=== PATIENT | male | born 1965 | race Caucasian/White ===

== ENCOUNTER 2016-04-02 02:35 | Emergency (ER) | payer OTHER ==
[~2016-04-02] VITALS: Ht 185.4 cm; Wt 97.5 kg
[~2016-04-02 02:35] MED LIST: ALLOPURINOL100 MG; ATIVAN0.5 MG PO; CELEXA20 MG PO; CITALOPRAM HYDR20 MG; CITALOPRAM HYDR40 MG PO; CRESTOR 5MG5 MG PO; DEPAKOTE500 M1 PO; DISULFIRAM250 M1 PO; DIVALPROEX SOD250 M2 PO; LAMICTAL 100MG100 MG PO; LAMICTAL 25MG25 MG PO; LORAZEPAM1 MG; METHYLPHENIDATE10 M4; METOPROLOL SUCC50 M2 PO; RITALIN LA20 MG PO; RITALIN5 M1 PO; SERTRALINE HCL100 MG PO; TOPROL XL 100100 MG PO; ZYLOPRIM 100MG100 MG PO
--- NOTE | 2016-04-02 02:41 | ED AMS/SEIZURE/WEAK/DIZZY ---
History of Present Illness General Chief Complaint: ETOH/Drug Related Complaint Stated Complaint: "PER EMS ETOH" Source: patient, EMS Exam Limitations: no limitations Vital Signs & Intake/Output Vital Signs & Intake/Output Vital Signs Date Time Temp Pulse Resp B/P Pulse O2 O2 Flow FiO2 Ox Delivery Rate 04/02 0304 96.7 73 18 116/64 96 Room Air Allergies Coded Allergies: No Known Allergies (12/26/15) Reconcile Medications Citalopram Hydrobromide (Citalopram HBr) 40 MG TABLET 1 TAB PO DAILY MENTAL HEALTH (Reported) Disulfiram 250 MG TABLET 1 TAB PO DAILY ALCOHOL (Reported) Divalproex Sodium (Depakote) 500 MG TABLET.DR 1 TAB PO BID MENTAL HEALTH ( Reported) Divalproex Sodium 250 MG TABLET.DR 1 TAB PO BID MENTAL HEALTH (Reported) Lamotrigine (Lamictal 25MG) 25 MG TABLET 5 TAB PO DAILY MENTAL HEALTH ( Reported) Methylphenidate Hydrochloride (Ritalin LA) 20 MG CER 20 MG PO QAM ADHD ( Reported) Metoprolol Succinate 50 MG TAB.ER.24H 1 TAB PO DAILY HEART (Reported) Rosuvastatin Calcium (Crestor) 5 MG TABLET 5 MG PO DAILY CHOLESTEROL ( Reported) Sertraline HCl 100 MG TABLET 1 TAB PO DAILY MENTAL HEALTH (Reported) Triage Nurses Notes Reviewed? yes Onset: Gradual Duration: hour(s): Timing: recent history Injury Environment: home Severity: mild, moderate Modifying Factors: Improves With: rest. Associated Symptoms: "I feel fine and want to go home." HPI: 51-year-old gentleman history of alcohol abuse presents with mental status change. He states that he missed a dose of Antabuse, "and that gave me the idea that I could drink tonight." His roommate called for his aberrant behavior consistent with prior episodes of intoxication. He states that he has been drinking tonight and that he feels otherwise well. He denies suicidality homicidality or hallucinations. He does not wish detox. He states, "I'll just sleep it off and leave in the morning." Past History Travel History Traveled to [place] past 21 day No Medical History Any Pertinent Medical History? see below for history Neurological: NONE EENT: NONE Cardiovascular: hypertension, hyperlipidemia Respiratory: NONE Gastrointestinal: NONE Hepatic: NONE Renal: NONE Musculoskeletal: chronic back pain Psychiatric: bipolar disease Endocrine: NONE Blood Disorders: NONE Surgical History Surgical History: none Psychosocial History Who do you live with Family What is your primary language Amharic Family History Hx Contributory? No Review of Systems Review of Systems Constitutional: Reports: no symptoms. EENTM: Reports: no symptoms. Respiratory: Reports: no symptoms. Cardiovascular: Reports: no symptoms. GI: Reports: no symptoms. Genitourinary: Reports: no symptoms. Musculoskeletal: Reports: no symptoms. Skin: Reports: no symptoms. Neurological/Psychological: Reports: no symptoms. Hematologic/Endocrine: Reports: no symptoms. Immunologic/Allergic: Reports: no symptoms. All Other Systems: Reviewed and Negative Physical Exam Physical Exam General Appearance: well developed/nourished Head: atraumatic Eyes: Bilateral: normal appearance. Ears, Nose, Throat: normal pharynx, normal ENT inspection Neck: normal inspection, supple, full range of motion Respiratory: normal breath sounds, chest non-tender, no respiratory distress Cardiovascular: regular rate/rhythm Gastrointestinal: normal bowel sounds, soft, non-tender Back: normal inspection Extremities: normal range of motion Neurologic/Psych: no motor/sensory deficits, awake, alert, oriented x 3 Skin: intact, normal color, warm/dry Core Measures ACS in differential dx? No CVA/TIA Diagnosis: No Severe Sepsis Present: No Septic Shock Present: No Progress Differential Diagnosis: alcohol intoxication versus other Plan of Care: He declines detox. He would like to rest for now and leave in the morning. Initial ED EKG: none Departure Departure Disposition: HOME OR SELF CARE Condition: Stable Clinical Impression Primary Impression: Alcohol intoxication Referrals: MEERA ROBLES MD (PCP/Family) Departure Forms: Customer Survey General Discharge Information Comments 04/02/16, 2:45am... pt breathylized 0.022 and .030.... pt to rest this am and will be safe for discharge in the morning. 04/02/16, 5:26am... pt resting comfortably. pt wishes to leave, denies SI/HI/ hallucinations. He ambulates well. Lucid in ED, able to make his own decisions.
[2016-04-02 05:29] VITALS: BP 114/65
== END 2016-04-02 05:32 ==
LOC: ERH 02:35
DX: F10.129 Alcohol abuse with intoxication, unspecified (principal)

== ENCOUNTER 2017-02-16 12:09 | Inpatient (IN) | payer OTHER ==
[~2017-02-16] VITALS: Ht 182.9 cm; Wt 86.2 kg
[~2017-02-16 12:09] MED LIST changes: +ABILIFY10 M1 PO; +ABILIFY15 M1 PO; +EFFEXOR XR75 M1 PO; +ESCITALOPRAM OX10 MG PO; +GABAPENTIN300 M2 PO; +LITHIUM CARBON300 M4 PO; +NICORELIEF2 MG PO; +NICOTINE PATCH1 EAC2 TOP; +TOPROL XL25 M1 PO; +WELLBUTRIN XL150 M2 PO
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
[2017-02-16 13:08] LABS: ABSOLUTE BASOPHIL COUNT 0 /CUMM (0.0-0.2); ABSOLUTE EOSINOPHIL COUNT 0.2 /CUMM (0.0-0.7); ABSOLUTE GRANULOCYTE CT 5.8 /CUMM (1.4-6.5); ABSOLUTE LYMPH COUNT 1.5 /CUMM (1.2-3.4); ABSOLUTE MONOCYTE COUNT 0.6 /CUMM (0.10-0.60); BASOPHIL % 0.3 % (0.0-2.0); EOSINOPHIL % 2.8 % (0-5); GRANULOCYTE % 70.5 % (42.2-75.2); HEMATOCRIT 45.9 % (42-52); MEAN CORPUSCULAR HGB 28.3 PG (27.0-31.0); MEAN CORPUSCULAR HGB CONC 33.8 G/DL (33.0-37.0); MEAN CORPUSCULAR VOLUME 83.6 FL (80.0-94.0); MEAN PLATELET VOLUME 8.5 FL (7.4-10.4); PLATELET COUNT 205 /CUMM (130-400); RED BLOOD CELL CT 5.49 /CUMM (4.70-6.10); WHITE BLOOD CELL COUNT 8.2 /CUMM (4.8-10.8)
[2017-02-16 14:18] LABS: LITHIUM 0.4 mmol/L (0.6-1.2)
[2017-02-16 18:58] VITALS: BP 149/89
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
--- NOTE | 2017-02-16 23:58 | PN- Gen Med ---
Assessment/Plan Assessment: 52 YO M with medical Hx of bipolar disorder, alcoholism and HTN came to the ER for suicidal ideation. According to him, he had his car beside the train tracks and was thinking of killing himself. He states that his tells him he is a failure and constantly berates him. He has history of suicidal ideation in the past before and was admitted in inpatient psych on Jan 21 - Jan 25 for overdose and suicidal ideation. He denies any illicit drug use but admits to heavy alcohol abuse. 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 He does not offer any complaints and complete ROS unremarkable, compliant with his medications. Problem List: 1. Suicide ideation 2. Bipolar affective, depress, unspec Plan: #1 Bipolar disorder with suicidal ideation : agree with psychiatrist plan #2 alcoholism : agree with psychiatry plan # HTN : continue Metoprolol DVT/Prophylaxis: early ambulation low risk Subjective Follow-up For: SI, bipolar disorder, HTN Complaints: no complaints Subjective: No Complaints, See Assessment. Review of Systems Constitutional: Reports: no symptoms. EENTM: Reports: no symptoms. Cardiovascular: Reports: no symptoms. Respiratory: Reports: no symptoms. Gastrointestinal: Reports: no symptoms. Genitourinary: Reports: no symptoms. Musculoskeletal: Reports: no symptoms. Skin: Reports: no symptoms. Neurological/Psychological: Reports: no symptoms. Hematologic/Endocrine: Reports: no symptoms. Objective Last 24 Hrs of Vital Signs/I&O Vital Signs Date Time Temp Pulse Resp B/P B/P Pulse O2 O2 Flow FiO2 Mean Ox Delivery Rate 02/16 1858 97.3 88 149/89 02/16 185 97.3 88 149/89 02/16 1839 97.6 94 18 140/81 97 Room Air 02/16 1838 90 164/98 02/16 1425 97.9 90 18 164/98 97 Room Air 02/16 1216 96.5 96 16 146/97 98 Room Air Intake & Output 02/16 0000 02/16 0800 02/16 1600 Intake Total Output Total Balance Patient 86.183 kg Weight Weight Reported by Patient Measurement Method Physical Exam General Appearance: Alert, Oriented X3, Cooperative, No Acute Distress Skin: No Rashes HEENT: Atraumatic, PERRLA, EOMI Neck: Supple, No JVD, No thryomegaly, +2 Carotid Pulse wo Bruit Lymphatic: Cervical nl Cardiovascular: Regular Rate, Normal S1, Normal S2, No Murmurs Lungs: Clear to Auscultation, Normal Air Movement Abdomen: Normal Bowel Sounds, Soft, No Tenderness Neurological: Normal Gait, Normal Speech, Strength at 5/5 X4 Ext, Normal Tone, Sensation Intact, Cranial Nerves 3-12 NL, Reflexes 2+ Extremities: No Clubbing, No Cyanosis, No Edema Vascular: Pulses Symmetrical Current Medications: Current Medications Sig/Oni Start time Last Medication Dose Route Stop Time Status Admin Acetaminophen 650 MG Q6-PRN PRN 02/16 1800 AC PO Acetaminophen 0 .STK-MED ONE 02/16 1658 DC PO Al Hydroxide/Mg 30 ML Q4-6 PRN PRN 02/16 1800 AC Hydroxide PO Aripiprazole 10 MG 02/16 2000 AC 02/16 PO 2144 Aripiprazole 10 MG DAILY 02/16 1504 DC PO Benztropine Mesylate 1 MG Q6P PRN 02/16 1800 AC PO Benztropine Mesylate 1 MG Q6P PRN 02/16 1800 AC IM Bupropion HCl 150 MG 0802/17 0800 AC PO Bupropion HCl 150 MG DAILY 02/16 1504 DC 02/16 PO 1657 Folic Acid 1 MG DAILY 02/17 1000 AC PO 02/19 1001 Gabapentin 600 MG AT BEDTIME 02/16 2200 AC 02/16 PO 2144 Haloperidol 5 MG Q6P PRN 02/16 1800 AC PO Haloperidol 5 MG Q6P PRN 02/16 1800 AC IM Hydroxyzine HCl 50 MG Q4-PRN PRN 02/16 1800 AC PO [place] Carbonate 300 MG BID 02/16 2200 AC 02/16 PO 2144 [place] Carbonate 300 MG 00,02/16 2000 CAN PO Lorazepam 2 MG Q2P PRN 02/16 1800 AC PO Lorazepam 1 MG Q2P PRN 02/16 1800 AC PO Lorazepam 2 MG Q6P PRN 02/16 1800 AC PO Lorazepam 2 MG Q6P PRN 02/16 1800 AC IM Metoprolol Succinate 12.5 MG DAILY 02/17 1000 AC PO Metoprolol Succinate 12.5 MG ONCE ONE 02/16 1830 DC 02/16 PO 02/16 183 1838 Multivitamins 1 TAB DAILY 02/17 1000 AC PO Nicotine 2 MG Q2 HRS NEEDED PRN 02/16 1800 AC PO Thiamine HCl 100 MG DAILY 02/17 1000 AC PO 02/19 1001 Trazodone HCl 50 MG AT BEDTIME NEED.. 02/16 1800 AC 02/16 PO 2145 Venlafaxine HCl 75 MG DAILY 02/17 1000 AC PO Venlafaxine HCl 75 MG DAILY 02/16 1504 DC 02/16 PO 1657 Last 24 Hrs of Labs/Mics: Laboratory Tests 02/16/17 1306: Urine Opiates Screen < 100.00, Methadone Screen < 40, Barbiturate Screen < 60, Ur Phencyclidine Scrn < 6.00, Amphetamines Screen < 100, U Benzodiazepines Scrn < 85, Urine Cocaine Screen < 50, Urine Cannabis Screen < 5.00 02/16/17 1258: [place] Cancelled 02/16/17 1258: Anion Gap 14, Estimated GFR > 60, BUN/Creatinine Ratio 14.2, Glucose 86, Calcium 9.9, Total Bilirubin 0.5, AST 24, ALT 39, Alkaline Phosphatase 60, Total Protein 7.8, Albumin 4.6, Globulin 3.2, Albumin/Globulin Ratio 1.4, CBC w Diff NO MAN DIFF REQ, RBC 5.49, MCV 83.6, MCH 28.3, RDW 13.0, MPV 8.5, Gran % 70.5, Lymphocytes % 18.7 L, Monocytes % 7.7, Eosinophils % 2.8, Basophils % 0.3, Absolute Granulocytes 5.8, Absolute Lymphocytes 1.5, Absolute Monocytes 0.6, Absolute Eosinophils 0.2, Absolute Basophils 0, PUBS MCHC 33.8, [place] 0.4 L, Serum Alcohol 59.0
[2017-02-17] VITALS (9 sets, daily range): BP systolic 131–148; BP diastolic 78–100
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
--- NOTE | 2017-02-17 14:14 | CPS PROVIDER INIT ASMT PSYCH ---
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 Feels she berates and belittles him, makes him feel worthless. Reports that yesterday morning he was assessing how he felt miserable and hopeless in his current situation, drove his car to the train tracks, parked next to the tracks, and waited for a train to come, contemplating ending his life by stepping in front of the train. He ultimately decided against killing himself, citing his children, and drove to the hospital for treatment. He reports having 4 beers prior to this episode. Problem(s) Justifying Need for Admission: Acute SI with plan and furtherance of plan Treatment resistant depression Other HPI: On d/c was scheduled to f/u with IOP however per my reading of the notes he never followed up Meds on sd from [facility] Jan 2017: Gabapentin 600 mg QHS Toprol XL 12.5 mg QAM Wellburtin XL 150 mg QAM Effexor XR 75 mg QAM Abilify 10 mg QAM [place] 300 mg BID Past Psychiatric History Past Diagnosis(es)- if any: Bipolar disorder, unspecified Alcohol use disorder Of note, on query regarding true history of manic symptoms, I was unable to elicit any concrete evidence for discrete manic or hypomanic periods Past Precipitating Factors- if any: Treatment non-adherence Substance use - Include inpatient and outpatient treatment Treatment History: Multiple inpatient treatments, including [facility] most recently in 01/2017, as well as at [facility] and another inpatient facility in [place] History of Suicide Attempts or Gestures Denies history of suicide attempts Substance Abuse History: Intermittent alcohol use, currently reports drinking "very occasionally ", further described as less than weekly. He did note that he had 4 beers prior to his driving to the train tracks yesterday morning. Allergies: Coded Allergies: No Known Allergies (10/31/16) Home Med List: Gabapentin 600 mg QHS Toprol XL 12.5 mg QAM Wellburtin XL 150 mg QAM Effexor XR 75 mg QAM Abilify 10 mg QAM [place] 300 mg BID - Include any medical condition(s) that may - impact the patient's recovery/remission Past History Medical History Neurological: NONE EENT: NONE Cardiovascular: hypertension, hyperlipidemia Respiratory: NONE Gastrointestinal: NONE Hepatic: NONE Renal: NONE Musculoskeletal: chronic back pain Psychiatric: bipolar disease, ETOH ABUSE Endocrine: NONE Blood Disorders: NONE Cancer(s): NONE PAIRER SUBSTANDARD/Reproductive: n/a History of MRSA: No History of VRE: No History of CDIFF: No Isolation History: Standard Surgical History Surgical History: non-contributory Psychiatric Family/Social Hx Family History Psychiatric Illness: Mother with "some kind of mental illness. I was never able to figure out what exactly it was, and no one ever told me what it was. " Substance Use: Denies Suicides: Denies Social History Living Situation: Lives with his long-term female partner (they've been together for over 16 years ) Significant Relationships (family/friends): Long-term female partner with whom he has been with for over 16 years Education: High school Vocation/Occupation: Works part-time at [employer], which he says is a job that he enjoys because of interaction with other people Legal: Denies current legal concerns. No pending criminal cases on [place] Behaviors Screening Tobacco Screening Tobacco Use from ED Docu: Never used - If tobacco counseling indicated - the following topics are required. - #1 Recognizing dangerous situations. - #2 Coping Skills. - #3 Basic information about quitting. Status of Tobacco Cessation Counseling: Not Applicable Cessation Med Status Not Applicable Alcohol Screening - ETOH screen POS if BAL >=80 or Audit-C>= M4/F3 Audit-C Score from Diag Assess: 4 Blood Alcohol Level: Laboratory Tests 02/16 1258 Toxicology Serum Alcohol (<10 MG/DL) 59.0 Alcohol Use Screening Results: Pos per Audit C &/or BAL - If ETOH counseling indicated - the following topics are required. - #1 Express concern about the patient's - drinking at unhealthy levels, include informing - of national norms for moderate drinking: - men <= 14 drinks/week, max 4 drinks/occasion - women <= 7 drinks/week, max 3 drinks/occasion - #2 Providing feedback, including linking alcohol to - negative physical effects (liver injury, hypertension) - negative emotional effects (relationship problems and - depression) - negative occupational consequences (reduced work - performance) - #3 Advising the patient to abstain from alcohol or - to drink below national norms for moderate drinking - (as listed above). Status of ETOH Use Counseling: #1, #2 AND #3 Completed. Metabolic Screening - Screen if on a Neuroleptic Medication - Metabolic screening should include: - Blood Pressure, BMI, Glucose or Hgb A1c, & a - Lipid profile from within the past 365 days. Metabolic Screening BMI: 25.700 Blood Pressure: 136/93 Laboratory Results From [facility] (If applicable): Appropriate metabolic laboratory tests ordered Exam and Plan Mental Status Examination Ambulation Status: Stable Appearance: Disheveled and malodorous Attitude towards examiner: Pleasant and cooperative Psychomotor activity: Positive psychomotor retardation Behavior: Appropriate Quality of speech: Within normal limits Affect: Depressed Mood: "Depressed " Suicidal Ideation: Current suicidal ideation without plan or intent Homicidal Ideation: Denies Hallucinations: Denies Paranoid/Delusional Material: None evidenced Difficulties with thought organization: None evidenced Insight: Fair Judgment: Limited Orientation: To person, place, time, situation Cognition: Intact Memory Function: Appropriate immediate and delayed recall Estimate of intellectual functioning: Average Assets/Strengths Patient Identified Assets/Strengths: Has children for whom he cares, has employment, continues to enjoy interacting with others as demonstrated by his enjoyment with his job Impression/Plan Impression and Plan: 52-year-old domiciled, employed, long-term partnered man with a chart history of bipolar disorder and alcohol use disorder, recently discharged from inpatient psychiatry at [facility], presents for ongoing depression with suicidal ideation and furtherance of a plan to take his life by stepping in front of a train. - Include all active medical diagnosis that require tx DSM 5 Diagnosis(es): Depressive disorder, unspecified Alcohol use disorder, moderate - Initial Tx Plan for Active Psych & Medical Conditions Treatment Plan: -Admit Inpatient Psychiatry, voluntary basis -15 minute checks -Follow-up on admission laboratory results -Alcohol use counseling provided -Will continue medications from Inpatient Psychiatry discharge earlier this month. However, up titrate lithium to 300 mg in the morning and 600 mg at night (admission lithium level was 0.4). Also will up titrate Effexor XR from 75 mg daily to 150 mg daily. The patient is in agreement with these medication changes and has been counseled regarding potential side effects to watch out for. Suggest reobtaining lithium level Saturday. -Obtain further collateral from patient's long-term partner -Identify patient's roadblocks to seeking outpatient treatment after discharge. - Factors that would help patient function - in a less restrictive setting. Factors: Lack of SI Improvement in mood
[2017-02-18] VITALS (8 sets, daily range): BP systolic 132–142; BP diastolic 77–96
--- NOTE | 2017-02-18 13:08 | CP SOUTH PROGRESS NOTE PSYCH ---
Psych (Inpt) Progress Note Progress Note Include the following elements, when applicable: Involvement in the active treatment of the patient with behavioral observations of the patient and the patient's response to the treatment. Review of the ongoing treatment process in the context of the treatment plan. Indication of how multi-disciplinary staff members are carrying out the treatment plan. Plans for future interventions and recommendations for revision of the treatment plan. Liaison with other physicians/providers. Progress Note: Dr. Ackerman's notes reviewed. Medication list reviewed. Case discussed with nurse. Nurse reports that the patient is here with suicidal ideation to jump in front of a train. +Alcohol use. Has suicidal ideation but gives a safety promise. Patient seen at 11:14 AM. He was resting in bed but got up to meet with me. He is dressed in blue paper scrubs. Patient reports that he is here because he had gotten extremely depressed over the past couple of days. States it came to a head and he had wanted to check out. Reports he has been verbally abused by his , who allegedly calls him worthless, a lousy father and a lousy human being. Reports he was medication-compliant. Reports he drank a little on the day of presentation. Affect is calm and blunted to depressed. Reports mood is a little down. Rates sad mood 7/10 and anxiety 0/10. Feels hopeless, worthless and guilty. Denies feeling helpless. Reports ongoing suicidal ideation. He gives a safety promise for here. Denies homicidal ideation. Denies auditory and visual hallucinations and paranoid ideation. Reports sleep is okay. Appetite is fine. Energy is not that great. Tolerating medications well, without complaint. IMPRESSION: Slow progress. Continue present treatment plan. Continues to require inpatient level of care. Patient is on lithium, Effexor and Wellbutrin XL. Lab [place] 0.4 mmol/L L 02/16/17 1258 I ordered a repeat lithium level for AM 02/20/17.
[2017-02-19] VITALS (8 sets, daily range): BP systolic 142–160; BP diastolic 96–100
--- NOTE | 2017-02-19 14:56 | CP SOUTH PROGRESS NOTE PSYCH ---
Psych (Inpt) Progress Note Progress Note I reviewed Dr. Sainz note and Dr. Ackerman's notes from the weekend. Medication list reviewed. Case discussed in multidisciplinary treatment team meeting. Summary: Xi was admitted to [facility] because of suicidal ideation to jump in front of a train. +Alcohol use. Mental Status Examination: Xi was alert and oriented to time, place, and person. He is still depressed but reported feeling better. He reported feeling off kilter/dizzy. Affect is calm and stolid. He reported very little anxiety/manageable. He denied feeling hopeless or worthless, he denied wishing or thinking of suicide Xi did not seem sure he is ready for discharge, he said he has a job and not sure if he is going to be able to do IOP. He denied hallucinations and denied feeling paranoid. I did not observe any delusions. IMPRESSION: Slow progress. Reported feeling off kilter/dizzy, otherwise tolerating meds, no tremor. A repeat lithium level was ordered by Dr. Urban for tomorrow Treatment Plan Update: D/C Nicotine D/C Gabapentin Resume Naltrexone 50 mg daily D/C Hydroxyzine
--- NOTE | 2017-02-19 16:40 | SOCIAL WORKER PROG NOTE PSYCH ---
Social Work Progress Note Progress Note [facility] concurrent review entered: Member Name Member ID Member Subscriber Name Subscriber ID CHICHO SANDERSON [id number] 1965 CHICHO SANDERSON [id number] Pended Authorization # Client Authorization # Type of Request [id number] CONCURRENT Date of Admission/ Start of Services Requested From Submission Date 02/16/2017 02/19/2017 02/19/2017 Level of Service Type of Service Level of Care Type of Care INPATIENT/OC Mental Health Inpatient Inpatient [facility] - Inpatient Hospital
--- NOTE | 2017-02-19 17:36 | SOCIAL WORKER PROG NOTE PSYCH ---
Social Work Progress Note Progress Note 2:30pm This video game script writer met with patient. He discussed events leading to current inpatient admission in which he had a plan to "throw myself in front of a train," (he drove to the train tracks) which he ultimately decided against doing when he thought about his "aunt Nicole" as well as his (4) children. He identified triggers as only working senior partner and feeling that he should be more successful in life (an established career, owning a home, money saved for senior living and being a more effective father (spending more time with his children). Patient reported occassional alcohol use and admitted to using (4 beers) prior to driving to the train tracks. He identified alcohol as a means to "escape" how he had been feeling. Patient appeared ambivalent and somewhat resistant to attending IOP, stating that he felt it would conflict with his work schedule. He was agreeable to scheduling a family meeting with his . Patient denied SI today and stated that he felt safe on this unit. He agreed to immediately inform nursing/staff should he feel unsafe or have other concerns.
[2017-02-20 07:56] VITALS: BP 141/98
[2017-02-20 12:22] VITALS: BP 168/99
--- NOTE | 2017-02-20 13:07 | CP SOUTH PROGRESS NOTE PSYCH ---
Psych (Inpt) Progress Note Progress Note I listened to the input of the multidisciplinary treatment team in the morning meeting. Summary: Xi was admitted to [facility] because of suicidal ideation (was thinking about jumping in front of a train) while intoxicated (alcohol). Mental Status Examination: Xi was alert and oriented to time, place, and person. Although still depressed, he is less depressed each passing day (by his report). He believes that he is not yet ready for discharge. He is no longer off kilter or dizzy today. Affect was calm and slightly more animated than yesterday. He reported that his anxiety is minimal and manageable. He denied feeling hopeless or worthless, and he denied wishing or thinking of suicide. Xi is still on the fence regarding IOP because I am going to be starting a new job He denied hallucinations and denied feeling paranoid. I did not observe any delusions. He was coherent/no thought disorder. Assessment: Showing slow progress, [place] Level from this morning was 0.7 mmol/L, BP still slightly elevated Vitals Blood Pressure 141/98 02/20/17 0756 Treatment Plan Update: Increase Metoprolol XR to 25 mg daily Continue Naltrexone 50 mg daily Re-evaluate tomorrow
--- NOTE | 2017-02-20 14:52 | SOCIAL WORKER PROG NOTE PSYCH ---
Social Work Progress Note Progress Note 11:32am This underwriter solicitation director spoke with patient's , Clarissa, by phone to schedule a family meeting. Due to not driving, Clarissa stated that she could either attend a family meeting by phone tomorrow (01/22/17) or attend a family meeting in person on the day of discharge and accompany the patient home. She stated that she preferred to attend in person on the day of discharge. This underwriter solicitation director will review with the team during the team meeting tomorrow morning and contact the patient's by phone. Clarissa also added that she feels it would be difficult for the patient to attend IOP due to accepting a new, second job. Additionally, she felt that the IOP was not effective due to his current admission to [facility]. Clarissa stated that the patient does not "reach out" when he needs help and feels that he needs to learn skills in order to utilize his supports. Clarissa was agreeable to bringing these thoughts and concerns to the family meeting. 1:05pm This underwriter solicitation director met with patient. He described his mood as "alright" and stated that he was nervous about going home as he feels that his is upset with him for being away for the holiday. Patient maintained that he does not want to attend IOP due to his work schedule and would like to return to his individual therapist, Arely Posey (patient was unsure of the last name). Patient denied SI/HI /AH/VH. Patient was informed of the phone call between this underwriter solicitation director and his . He was agreeable to this plan.
[2017-02-20 15:37] VITALS: BP 141/97
[2017-02-20 19:37] VITALS: BP 144/103
[2017-02-21 07:54] VITALS: BP 160/98
[2017-02-21 11:54] VITALS: BP 137/91
--- NOTE | 2017-02-21 12:02 | CP SOUTH PROGRESS NOTE PSYCH ---
Psych (Inpt) Progress Note Progress Note [place] progress and treatment were discussed in the multidisciplinary treatment team meeting. Summary: Xi was admitted to [facility] because of suicidal ideation (was thinking about jumping in front of a train) while intoxicated (alcohol). Mental Status Examination: Xi was alert and oriented to time, place, and person. He reported that his mood is better and he believes that he is ready for discharge for tomorrow. He tolerated naltrexone well, no longer feeling off kilter or dizzy. He was calm and seemed in better spirits today. He reported that his anxiety is minimal and manageable. He denied feeling hopeless or worthless, and he denied wishing or thinking of suicide. Xi decided that he wont be doing IOP following his discharge because he will be working 2 part-time jobs to support his family He denied hallucinations and denied feeling paranoid. There were no delusions. He was coherent/no thought disorder. Assessment: Mentally improving, BP still slightly elevated @ 160/98 mmHg Treatment Plan Update: Continue Metoprolol XR 25 mg daily Continue Naltrexone 50 mg daily Continue [place] (level 0.7) Re-evaluate tomorrow
--- NOTE | 2017-02-21 13:47 | SOCIAL WORKER PROG NOTE PSYCH ---
Social Work Progress Note Progress Note Member Name Member ID Member Subscriber Name Subscriber ID CHICHO SANDERSON [id number] 1965 SAMANTHAUsha Pena MARIA E [id number] Pended Authorization # Client Authorization # Type of Request [id number] CONCURRENT Date of Admission/ Start of Services Requested From Submission Date 02/16/2017 02/21/2017 02/21/2017
[2017-02-21 15:58] VITALS: BP 140/100
--- NOTE | 2017-02-21 17:05 | SOCIAL WORKER PROG NOTE PSYCH ---
Social Work Progress Note Progress Note This communications writer spoke with patient's , Clarissa, to schedule a phone session with the patient this afternoon at 3pm. In addition, at patient's directive due to not having it himself, Clarissa provided his therapist's contact information: Arely Morales, cell - [phone] and work - [phone]. The following [facility] appoinments have been scheduled: Intake with Tg Hernandez LCSW 02/27/17 at 10:30am Medication appointment with Aranza Crocker, RETAIL LOSS PREVENTION OFFICER: 03/19/17 at 10:30am As informed by Aranza, she is willing/able to meet with the patient monthly for medication management if the patient is seen weekly in some format. If the patient's therapist is unable to see him weekly, then he may attend the relapse prevention group. Should patient struggle with symptoms, then she will recommend that he attends the relapse prevention group or IOP. Patient is also offered to attend as many services he wishes to attend should he wish to attend more than weekly treatment. 3:02pm Dr. Melara and this communications writer met with the patient and his , Clarissa. Clarissa attended the meeting by phone. Clarissa discussed concerns about the patient being unwilling to ask for help. Patient stated that he feels as though he is a burden when he does reach out. Clarissa described his "declines" as "gradual declines." Strategies were explored to assist patient in reaching out for help. He identified one or two people that he would be willing to contact as he initially stated that he does not have any friends. "All of my friends were Clarissa's friends first." Discharge plans (as described above) were discussed and Clarissa and the patient were both in agreement with them. They were informed that this communications writer has not yet spoken with Arely Morales regarding treatment. This communications writer will inform patient once contact has been made with Arely. Patient and his were both in agreement and verbally indicated understanding of Aranza Crocker's recommendations. Dr. Melara reviewed medications and responded to related questions/concerns. Patient is anticipated to discharge tomorrow, 02/22/17, and will return home to his . He stated that his mother in law will provide transportation home from the hospital. 4:29pm This communications writer spoke with HOLGER Castaneda by phone. She stated that she plans to continue to meet with the patient on a weekly basis and has scheduled their next appointment (through the patient's , Clarissa) for 11:30am on . She stated that she has worked both with the patient as well as the patient and his and that he has been consistent with treatment. Arely was informed of the recommendations made by Aranza Crocker and stated that she would be in contact with her as well. Arely also stated that she did not feel that the patient would benefit further from IOP at this time, however, would recommend that he attends AA. Arely thanked this communications writer for the call and provided the address of her office: [address] [place], [place]
[2017-02-21 20:00] VITALS: BP 135/97
[2017-02-22 07:39] VITALS: BP 142/96
[2017-02-22] MEDS ORDERED: LITHIUM CARBON300 M4 PO ×2 (08:33)
[2017-02-22] MEDS ORDERED: EFFEXOR XR75 M1 PO (08:33)
[2017-02-22] MEDS ORDERED: TOPROL XL25 M1 PO (08:33)
[2017-02-22] MEDS ORDERED: TRAZODONE HCL50 M1 PO (08:33)
[2017-02-22] MEDS ORDERED: NALTREXONE HCL50 M1 PO (08:33)
--- NOTE | 2017-02-22 10:46 | CP SOUTH PROGRESS NOTE PSYCH ---
Psych (Inpt) Progress Note Progress Note error, duplicate
--- NOTE | 2017-02-22 10:53 | CP SOUTH PROGRESS NOTE PSYCH ---
Psych (Inpt) Progress Note Progress Note [place] progress and treatment were discussed in the multidisciplinary treatment team meeting. Discharge plan/aftercare was discussed as well Summary: Xi was admitted to [facility] because of suicidal ideation (was thinking about jumping in front of a train) while intoxicated (alcohol). He has shown moderate improvement and is no longer thinking of suicide, he feels ready to go home and treatment team is in agreement with that. Mental Status Examination on 02/22/2017: Xi remains constricted in his affect but reported that his depressed mood is better. He was alert and oriented to time, place, and person. He reported that he is ready for discharge. He was calm and reported that his anxiety is minimal and manageable. He denied feeling hopeless or worthless, and he denied wishing or thinking of suicide. Xi will be working 2 part-time jobs to support his family and doing weekly individual therapy and monthly medication management visits. He denied hallucinations and denied feeling paranoid. There were no delusions. He was coherent/no thought disorder. Assessment: During his stay he showed mild improvement in depression and is no longer thinking of suicide. He feels ready to go home and treatment team is in agreement with that. Treatment Plan Update: Discharge Home (see discharge summary and after care plan)
--- NOTE | 2017-02-22 11:03 | DISCHARGE SUMMARY REPORT-PSYCH ---
Visit Information Visit Dates/Diagnosis' Admission Date: 02/16/17 Discharge Date: 02/22/17 Reason for Admission: suicidal ideation Psy Discharge Primary Diag: Depression Psy Discharge Secondary Diag: Alcohol Dependence Hospital Course Course Complications: No complications Consultations: Admission H & P Allergies: Coded Allergies: No Known Allergies (12/26/15) Hospital Course/TX Response: Admitted this time on 02/16/2017 for "Well, I just feel like life is pointless. " Longstanding history of mood and substance use disorders, ongoing depressive symptoms since dc from (recently hospitalized at 01/21-01/25/17 for SI). Before this current admission he drove his car to the train tracks, parked next to the tracks, and waited for a train to come, contemplating ending his life by stepping in front of the train. He ultimately decided against killing himself, citing his children, and drove to the hospital for treatment. He reports having 4 beers prior to this episode. Patient treated with a combination of Effexor, Grand Ridge and showed minimal to mild improvement but he was free of theoughts of suicide at the time of his discharge. He tolerated medications well Mental Status Examination on 02/22/2017: Xi remains constricted in his affect but reported that his depressed mood is better. He was alert and oriented to time, place, and person. He reported that he is ready for discharge. He was calm and reported that his anxiety is minimal and manageable. He denied feeling hopeless or worthless, and he denied wishing or thinking of suicide. Xi will be working 2 part-time jobs to support his family and doing weekly individual therapy and monthly medication management visits. He denied hallucinations and denied feeling paranoid. There were no delusions. He was coherent/no thought disorder. Assessment: During his stay he showed mild improvement in depression and is no longer thinking of suicide. He feels ready to go home and treatment team is in agreement with that. Treatment Plan Update: Discharge Home Discharge HBIPS - Tobacco Use Treatment Offered Post DC Medications Offered: Not Applicable Post DC Tobacco Treatment Plan: Not Applicable - EtOH/Drug Use D/O Treatment Offered Post DC Medications Offered: Script Given-See Med List Post DC EtOH/SubAbuse TX Plan: Refused Post DC Tx Pgm Metabolic Screening - Screen if on a Neuroleptic Medication - Metabolic screening should include: - Blood Pressure, BMI, Glucose or Hgb A1c, & a - Lipid profile from within the past 365 days. Metabolic Screening () Not Applicable, patient not on a neuroleptic. OR ([X]) Patient on a neuroleptic(s) . Enter below results for Hemoglobin A1C, and lipid panel if obtained during the last 365 days. BMI: 25.700 Blood Pressure: 142/96 Laboratory Results From [facility] (If applicable): Lab Cholesterol 251 MG/DL H 02/19/17 0650 Cholesterol/HDL Ratio 5 % H 02/19/17 0650 HDL Cholesterol 48 mg/dL 02/19/17 0650 Hemoglobin A1c 5.5 % 02/19/17 0650 LDL Cholesterol, Calc 156 mg/dL H 02/19/17 0650 Triglycerides 239 mg/dL H 02/19/17 0650 Grand Ridge 0.7 mmol/L 02/20/17 0619 Discharge Instructions General Discharge Information Multiple Neuroleptics: ([X]) Not Applicable Discharge Diet Other Discharge Activity Normal DC Disposition: D/C Home with Outpatient Individual Therapy at least weekly and Medication management and monitoring by Aranza Crocker APRN Referrals Ordered Referrals Provider Referral 02/27/17 For Groups: [ Outpatient] [facility] [address] [place] [address] Intake appointment: 02/27/17 at 10:30am with Tg Hernandez LCSW Provider Referral 03/19/17 For Groups: [ Outpatient] [facility] [address] [place] [address] Appointment: 03/19/17 at 9:30am with Aranza Crocker APRN Provider Referral 02/26/17 For Providers: [HOLGER Kirkland] HOLGER Castaneda [address] [facility] [address] [place], [place] [phone] Prescriptions Stop taking the following medications: Disulfiram (Disulfiram) 250 MG TABLET ORAL DAILY Qty = 30 Metoprolol Succ XL (Toprol XL) 25 MG TAB ORAL DAILY Qty = 7 Grand Ridge Carbonate (Grand Ridge Carbonate) 300 MG CAPSULE ORAL TWICE DAILY Qty = 30 Continue taking these medications: Gabapentin (Gabapentin) 300 MG CAPSULE 2 Tablet ORAL AT BEDTIME Qty = 30 Comments: Last Taken:01/24/17 Time:2142 pm Bupropion HCl (Wellbutrin XL) 150 MG TAB.ER.24H 1 Tablet ORAL DAILY @8 AM Qty = 14 Comments: Last Taken:01/25/17 Time:0812 am Venlafaxine HCl (Effexor XR) 75 MG CAP.ER.24H 1 Tablet ORAL DAILY Qty = 14 Comments: Last Taken:01/25/17 Time:0812 am Aripiprazole (Abilify) 10 MG TABLET 1 Tablet ORAL 2000 Qty = 14 Comments: Last Taken:01/24/17 Time:194 pm Start taking the following new medications: Metoprolol Succ XL (Toprol XL) 25 MG TAB 25 Milligram ORAL 5 PM Qty = 30 No Refills Naltrexone HCl (Naltrexone HCl) 50 MG TABLET 50 Milligram ORAL DAILY Qty = 14 No Refills Trazodone HCl (Trazodone HCl) 50 MG TABLET 50 Milligram ORAL AT BEDTIME as needed for insomnia Qty = 14 No Refills Venlafaxine HCl (Effexor XR) 75 MG CAP.ER.24H 150 Milligram ORAL DAILY @8 AM Qty = 14 No Refills Grand Ridge Carbonate (Grand Ridge Carbonate) 300 MG CAPSULE 600 Milligram ORAL AT BEDTIME Qty = 14 No Refills Grand Ridge Carbonate (Grand Ridge Carbonate) 300 MG CAPSULE 300 Milligram ORAL DAILY @8 AM Qty = 14 No Refills Copies To: Aranza Marcano APRN
[2017-02-22 12:12] VITALS: BP 113/93
--- NOTE | 2017-02-22 14:02 | SOCIAL WORKER PROG NOTE PSYCH ---
Social Work Progress Note Progress Note This report writer met with patient prior to discharge to review discharge plans. He stated that he felt comfortable with discharging today, however, was concerned that his "doesn't think anything is going to change." Patient expressed intention to follow through with outpatient treatment and identify strategies in order to feel more comfortable utilizing supports. He identified that he has a support system in place, referencing his and a friend. Patient stated that he will make an effort to maintain more frequent contact with his supports. Patient denied SI/HI/AH/VH and identified a safety plan in which he would immediately inform his , Clarissa, if he feels he is in crisis. "If it doesn 't help [talking to Clarissa] I'll call Arely." Patient was agreeable to attending at least weekly appointments upon discharge and was reminded of the conversation from yesterday in which he was informed of the relapse prevention groups. Patient was agreeable to attending the following appointments: - OPS with Tg Hernandez LCSW on 02/27/17 at 10:30am - OPS with Aranza Crocker APRN on 03/19/17 at 9:30am - Individual therapy with HOLGER Castaneda on 02/26/17 at 11:30am 10:04am This report writer left for HOLGER Castaneda ([phone]) requesting a call back to provide her fax number in order to fax the discharge papers (Patient Health Summary). Faxed Referral(s) Referred To: OPS Transition of Care Documents sent: Health Summary, Transfer Summary Faxed to: OPS: Aranza Jones Fax #: [phone] Faxed by: Nadia Lin LCSW Date faxed: 02/22/17 Time Faxed: [phone]
== END 2017-02-22 12:58 | DRG 754 ==
LOC: ERH 12:09 → ERHI 17:46 → CP SOUTH 17:46 → ENTRNSPT 18:38 → EDTRNSPT 18:40 → EDTRNSPTSTS 18:40 → CP SOUTH 18:47 → CMPTRNSPT 18:52 → CP SOUTH 02-19 08:13
PROVIDERS: Emergency Medicine; Psychiatry & Neurology Psychiatry
DX: F32.9 Major depressive disorder, single episode, unspecified (principal); F10.20 Alcohol dependence, uncomplicated
CPT/HCPCS: 36415; 80307; 93005; 93010; G0463; G0480; J0401; J3490

== ENCOUNTER 2017-03-17 16:43 | Inpatient (IN) | payer OTHER ==
[~2017-03-17] VITALS: Ht 182.9 cm; Wt 85.3 kg
[~2017-03-17 16:43] MED LIST changes: +NALTREXONE HCL50 M1 PO; +TRAZODONE HCL50 M1 PO
--- NOTE | 2017-03-17 16:52 | ED PSYCHIATRIC COMPLAINT ---
History of Present Illness General Chief Complaint: Psychiatric Related Complaint Stated Complaint: PSYCH EVAL Source: patient, old records, EMS Exam Limitations: no limitations Vital Signs & Intake/Output Vital Signs & Intake/Output Vital Signs Date Time Temp Pulse Resp B/P B/P Pulse O2 O2 Flow FiO2 Mean Ox Delivery Rate 03/18 0824 98.0 114 20 169/96 95 Room Air 03/17 2309 98.2 98 18 142/91 03/17 2309 98.2 98 18 142/91 94 Room Air 03/17 1903 98.0 95 16 152/90 98 Room Air 03/17 1829 96 20 148/103 03/17 1718 97.6 93 16 139/78 98 Room Air ED Intake and Output 03/18 0000 03/17 1200 Intake Total 0 Output Total Balance 0 Intake, Oral 0 Allergies Coded Allergies: No Known Allergies (12/26/15) Reconcile Medications Aripiprazole (Abilify) 10 MG TABLET 1 TAB PO 2000 DEPRESSION Bupropion HCl (Wellbutrin XL) 150 MG TAB.ER.24H 1 TAB PO 0800 DEPRESSION Gabapentin 300 MG CAPSULE 2 TAB PO AT BEDTIME SLEEP Buchanan Carbonate 300 MG CAPSULE 600 MG PO AT BEDTIME mood Buchanan Carbonate 300 MG CAPSULE 300 MG PO 0800 mood regulation Metoprolol Succ XL (Toprol XL) 25 MG TAB 25 MG PO 1700 blood pressure Naltrexone HCl 50 MG TABLET 50 MG PO DAILY cravings for alcohol Trazodone HCl 50 MG TABLET 50 MG PO AT BEDTIME PRN insomnia Venlafaxine HCl (Effexor XR) 75 MG CAP.ER.24H 150 MG PO 0800 depression (with the 75 mg) Venlafaxine HCl (Effexor XR) 75 MG CAP.ER.24H 1 TAB PO DAILY DEPRESSION Triage Nurses Notes Reviewed? yes HPI: Patient brought in by ambulance for suicidal ideations. No specific plans. Patient states he drank 6 beers today and knows that he is not supposed to check. Patient states he has been compliant with his medications. Patient denies any homicidal ideations. Patient denies any hallucinations. (Dionna GUTIERREZ,Osmin Harris) Past History Medical History Any Pertinent Medical History? see below for history Neurological: NONE EENT: NONE Cardiovascular: hypertension, hyperlipidemia Respiratory: NONE Gastrointestinal: NONE Hepatic: NONE Renal: NONE Musculoskeletal: chronic back pain Psychiatric: bipolar disease, ETOH ABUSE Endocrine: NONE Blood Disorders: NONE Cancer(s): NONE WARD MAID/Reproductive: n/a History of MRSA: No History of VRE: No History of CDIFF: No Surgical History Surgical History: none Psychosocial History Who do you live with Family What is your primary language Bruneian Tobacco Use: Current Daily Use Daily Tobacco Use Amount/Type: => 5 Cigarettes daily ETOH Use: heavy use Illicit Drug Use: denies illicit drug use Family History Hx Contributory? No (Dionna GUTIERREZ,Osmin Harris) Review of Systems Review of Systems Constitutional: Reports: no symptoms. EENTM: Reports: no symptoms. Respiratory: Reports: no symptoms. Cardiovascular: Reports: no symptoms. GI: Reports: no symptoms. Genitourinary: Reports: no symptoms. Musculoskeletal: Reports: no symptoms. Skin: Reports: no symptoms. Neurological/Psychological: Reports: see HPI, depressed. Hematologic/Endocrine: Reports: no symptoms. Immunologic/Allergic: Reports: no symptoms. All Other Systems: Reviewed and Negative (Dionna GUTIERREZ,Osmin Harris) Physical Exam Physical Exam General Appearance: well developed/nourished, mild distress Head: atraumatic Eyes: Bilateral: PERRL, EOMI. Ears, Nose, Throat: normal pharynx, normal ENT inspection, hearing grossly normal Neck: normal inspection, supple Respiratory: normal breath sounds Cardiovascular: regular rate/rhythm Gastrointestinal: soft, non-tender Extremities: normal range of motion Neurological/Psychiatric: no motor/sensory deficits, awake, alert, calm, oriented x 3 Appearance/Memory/Insight: appropriate appearance, appropriate insight Behavoir/Eye Contact/Speech: cooperative, normal speech, good eye contact Thoughts/Hallucinations: normal thought pattern, no apparent hallucination Skin: intact, normal color, warm/dry SAD PERSONS Done? CRISIS CONSULT OBTAINED (Dionna GUTIERREZ,Osmin Harris) Progress Differential Diagnosis: drug intoxication, drug overdose, drug withdrawal, electrolyte abnormality Plan of Care: Orders Procedure Date/time Status Regular Diet 03/18 B Active Continuous Observation Monitor 03/18 1900 Active Continuous Observation Monitor 03/18 1500 Active Continuous Observation Monitor 03/18 1100 Active Admit to inpatient psych 03/18 1041 Active Continuous Observation Monitor 03/18 0700 Active LITHIUM 03/17 1653 Complete Continuous Observation Monitor 03/17 1652 Active URINE DRUGS OF ABUSE 03/17 1652 Complete ETHANOL 03/17 1652 Complete COMPREHENSIVE METABOLIC PANEL 03/17 1652 Complete CBC WITHOUT DIFFERENTIAL 03/17 1651 Complete ED CRISIS PSYCH CONSULT 03/17 1651 Active Current Medications Sig/Oni Start time Last Medication Dose Stop Time Status Admin Lorazepam 1 MG Q2P PRN 03/18 09 UNVr (Ativan) Lorazepam 2 MG Q2 PRN 03/18 09 UNVr (Ativan) Buchanan Carbonate 300 MG 0803/18 0800 UNVr 03/18 (Buchanan Carbonate) 0826 Venlafaxine HCl 150 MG 0803/18 08 UNVr 03/18 (Effexor Xr) 08 Gabapentin 600 MG AT BEDTIME 03/17 220 UNVr 03/17 (Neurontin) 222 Buchanan Carbonate 600 MG AT BEDTIME 03/17 220 UNVr 03/17 (Buchanan Carbonate) 222 Metoprolol Succinate 25 MG 17003/17 170 UNVr 03/17 (Toprol XL) 182 Trazodone HCl 50 MG AT BEDTIME PRN 03/17 1700 AC (Desyrel) Laboratory Tests 03/17/17 1802: Urine Opiates Screen < 100.00, Methadone Screen < 40, Barbiturate Screen < 60, Ur Phencyclidine Scrn < 6.00, Amphetamines Screen < 100, U Benzodiazepines Scrn < 85, Urine Cocaine Screen < 50, Urine Cannabis Screen < 5.00 03/17/17 170: Serum Alcohol 41.0 03/17/17 170: Anion Gap 13, Estimated GFR > 60, BUN/Creatinine Ratio 12.5, Glucose 94, Calcium 9.7, Total Bilirubin 0.3, AST 20, ALT 45, Alkaline Phosphatase 51, Total Protein 7.3, Albumin 4.5, Globulin 2.8, Albumin/Globulin Ratio 1.6, CBC w Diff NO MAN DIFF REQ, RBC 5.38, MCV 83.6, MCH 27.6, RDW 13.4, MPV 8.8, Gran % 63.8, Lymphocytes % 24.9, Monocytes % 7.2, Eosinophils % 3.9, Basophils % 0.2, Absolute Granulocytes 4.0, Absolute Lymphocytes 1.6, Absolute Monocytes 0.5, Absolute Eosinophils 0.2, Absolute Basophils 0, PUBS MCHC 33.0, Buchanan 0.4 L Hand-Off Endorsed To: Lalo GUTIERREZ,Luis Manuel Esparza Endorsed Time: 1899 Pending: consult (Osmin Villareal MD) Hand-Off Endorsed To: Renard Ayala MD Endorsed Time: 0700 Pending: consult (Lalo GUTIERREZ,Luis Manuel Esparza) Departure Departure Disposition: STILL A PATIENT Condition: Stable Clinical Impression Primary Impression: Depression Secondary Impressions: Alcohol intoxication Referrals: Rosa Andersen DO (PCP/Family) Departure Forms: Customer Survey General Discharge Information (Osmin Villareal MD) Psych Admission Note Psychiatric Admission: I have seen and evaluated CHICHO SANDERSON. I have also reviewed all the pertinent lab results and diagnostic results. CHICHO SANDERSON will be admitted to our inpatient Psychiatric unit for treatment and care. (Renard Ayala MD)
[2017-03-17 17:23] LABS: ABSOLUTE BASOPHIL COUNT 0 /CUMM (0.0-0.2); ABSOLUTE EOSINOPHIL COUNT 0.2 /CUMM (0.0-0.7); ABSOLUTE LYMPH COUNT 1.6 /CUMM (1.2-3.4); ABSOLUTE MONOCYTE COUNT 0.5 /CUMM (0.10-0.60); BASOPHIL % 0.2 % (0.0-2.0); EOSINOPHIL % 3.9 % (0-5); GRANULOCYTE % 63.8 % (42.2-75.2); MEAN CORPUSCULAR HGB 27.6 PG (27.0-31.0); MEAN CORPUSCULAR VOLUME 83.6 FL (80.0-94.0); MEAN PLATELET VOLUME 8.8 FL (7.4-10.4); PLATELET COUNT 236 /CUMM (130-400); RBC DISTRIBUTION WIDTH 13.4 % (11.5-14.5); RED BLOOD CELL CT 5.38 /CUMM (4.70-6.10); WHITE BLOOD CELL COUNT 6.3 /CUMM (4.8-10.8)
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
[2017-03-17 23:09] VITALS: BP 142/91
[2017-03-18] VITALS (7 sets, daily range): BP systolic 137–147; BP diastolic 79–98
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
--- NOTE | 2017-03-18 13:53 | CPS PROVIDER INIT ASMT PSYCH ---
Psychiatric Admission Director Marketing's Note Reviewed: Yes Patient Seen and Examined: Yes Identifying Information: Xi is a 52-year-old white male who was brought in to [facility]'s emergency department by ambulance after his called 911. The patient reportedly told the police officers that he was having thoughts of suicide. Chief Complaint: Increasing depression and thoughts of suicide. The patient reported that he has been having thoughts of suicide pretty much since his discharge from [facility] about 3 weeks ago Reaction to Hospitalization: The patient was admitted voluntarily History of Present Illness Onset of Illness: The patient reported that he felt that he left the hospital early and was still having thoughts of suicide (although he denied that at his discharge), the patient reported that his been struggling with thoughts of suicide almost daily for the past 3 weeks Circumstances Leading to Admission: Relapsed on sixpack of beer and called 911 Problem(s) Justifying Need for Admission: Thoughts of suicide Past Psychiatric History Past Diagnosis(es)- if any: Unspecified depressive disorder Alcohol use disorder Past Precipitating Factors- if any: Relapsed on alcohol - Include inpatient and outpatient treatment Treatment History: The patient has had previous inpatient psychiatric admissions as well as being in treatment with [facility]'s outpatient psychiatric services History of Suicide Attempts or Gestures The patient has no previous suicide attempts although he has talked about suicide and mentioned specific plans in the past Substance Abuse History: Alcohol use disorder, the patient denied using other substances. Allergies: Coded Allergies: No Known Allergies (12/26/15) Home Med List: The patient was discharged on aripiprazole 10 mg daily Gabapentin (Gabapentin) 600 mg at bedtime Bupropion HCl (Wellbutrin XL) 150 MG ONCE DAILY Venlafaxine HCl (Effexor XR) 75 MG CAP.ER. Once daily - Include any medical condition(s) that may - impact the patient's recovery/remission Past History Medical History Neurological: NONE EENT: NONE Cardiovascular: hypertension, hyperlipidemia Respiratory: NONE Gastrointestinal: NONE Hepatic: NONE Renal: NONE Musculoskeletal: chronic back pain Psychiatric: bipolar disease, ETOH ABUSE Endocrine: NONE Blood Disorders: NONE Cancer(s): NONE FLOWER GRADER/Reproductive: n/a History of MRSA: No History of VRE: No History of CDIFF: No Isolation History: Standard Influenza Vaccine: 04/08/14 Surgical History Surgical History: non-contributory Psychiatric Family/Social Hx Family History Psychiatric Illness: Reportedly mother has "some kind of mental illness." Substance Use: Denied Suicides: Denied Social History Living Situation: Patient's live with his long-term female partner/common-law do been together for over 16 years Significant Relationships (family/friends): Long-term female partner/common-law Education: High school education Vocation/Occupation: Works part-time at [employer], he reports that he enjoys his job Legal: The patient denied any legal entanglements Healthly Behaviors Screening Tobacco Screening Tobacco Use from ED Docu: Never used Daily Tobacco Use Amount/Type: => 5 Cigarettes daily - If tobacco counseling indicated - the following topics are required. - #1 Recognizing dangerous situations. - #2 Coping Skills. - #3 Basic information about quitting. Status of Tobacco Cessation Counseling: Not Applicable Cessation Med Status Not Applicable Alcohol Screening - ETOH screen POS if BAL >=80 or Audit-C>= M4/F3 Audit-C Score from Diag Assess: 7 Blood Alcohol Level: Laboratory Tests 03/17 1706 Toxicology Serum Alcohol (<10 MG/DL) 41.0 Alcohol Use Screening Results: Pos per Audit C &/or BAL - If ETOH counseling indicated - the following topics are required. - #1 Express concern about the patient's - drinking at unhealthy levels, include informing - of national norms for moderate drinking: - men <= 14 drinks/week, max 4 drinks/occasion - women <= 7 drinks/week, max 3 drinks/occasion - #2 Providing feedback, including linking alcohol to - negative physical effects (liver injury, hypertension) - negative emotional effects (relationship problems and - depression) - negative occupational consequences (reduced work - performance) - #3 Advising the patient to abstain from alcohol or - to drink below national norms for moderate drinking - (as listed above). Status of ETOH Use Counseling: #1, #2 AND #3 Completed. Metabolic Screening - Screen if on a Neuroleptic Medication - Metabolic screening should include: - Blood Pressure, BMI, Glucose or Hgb A1c, & a - Lipid profile from within the past 365 days. Metabolic Screening () Not Applicable, patient not on a neuroleptic. OR () Patient on a neuroleptic(s) . Enter below results for Hemoglobin A1C, and lipid panel if obtained during the last 365 days. BMI: 25.500 Blood Pressure: 145/98 Laboratory Results From [facility] (If applicable): Lab Cholesterol 251 MG/DL H 12/26/17 0650 Cholesterol/HDL Ratio 5 % H 02/19/17 0650 Glucose 94 mg/dL 03/17/17 1706 HDL Cholesterol 48 mg/dL 02/19/17 0650 Hemoglobin A1c 5.5 % 02/19/17 0650 LDL Cholesterol, Calc 156 mg/dL H 02/19/17 0650 Triglycerides 239 mg/dL H 02/19/17 0650 Exam and Plan Mental Status Examination Ambulation Status: Steady gait Appearance: Appropriate Attitude towards examiner: Cooperative Psychomotor activity: Reduced psychomotor activity Behavior: Reduced psychomotor activity Quality of speech: Reduced speech Affect: Constricted Mood: Depressed Suicidal Ideation: He is still having suicidal ideation as of this morning Homicidal Ideation: Denied Hallucinations: Denied Paranoid/Delusional Material: Denied Difficulties with thought organization: No difficulties with thought organization Insight: Poor insight Judgment: Poor judgment Orientation: Oriented to time place and person Cognition: Alert Memory Function: No memory deficits Estimate of intellectual functioning: Average Assets/Strengths Patient Identified Assets/Strengths: Patient is employed and likes his job Impression/Plan Impression and Plan: 52-year-old white male who is known to staff at Inpatient Psychiatry from previous admissions. 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 15 minute checks Nursing assessments every shift Social work to obtain collateral and start discharge planning in Group therapy Milieu therapy Resume outpatient medications The patient will be evaluated daily by a psychiatrist - Factors that would help patient function - in a less restrictive setting. Factors: Abstinence from alcohol
--- NOTE | 2017-03-18 14:59 | PN- Att Addend ---
Attending Addendum Attending Brief Note Patient seen and examined, denies any medical complaints at present. Patient is admitted to Inpatient Psychiatry suicidal ideation. He does have history of hypertension. He takes Toprol-XL for his hypertension. Vital Signs Date Time Temp Pulse Resp B/P B/P Pulse O2 O2 Flow FiO2 Mean Ox Delivery Rate 03/18 1414 83 139/95 03/18 1141 Room Air 03/18 1141 97.7 89 16 145/98 03/18 1141 97.7 89 145/98 03/18 0824 98.0 114 20 169/96 95 Room Air 03/17 2309 98.2 98 18 142/91 03/17 2309 98.2 98 18 142/91 94 Room Air 03/17 1903 98.0 95 16 152/90 98 Room Air 03/17 1829 96 20 148/103 03/17 1718 97.6 93 16 139/78 98 Room Air on exam; aox3, nad. cv; s1,s2 rrr resp; clear abd; soft, nt, bs+ ext; no edema. Laboratory Tests 03/17 03/17 03/17 1802 1706 1706 Chemistry Sodium (137 - 145 mmol/L) 145 Potassium (3.5 - 5.1 mmol/L) 3.9 Chloride (98 - 107 mmol/L) 109 H Carbon Dioxide (22 - 30 mmol/L) 23 Anion Gap (5 - 16) 13 BUN (9 - 20 mg/dL) 15 Creatinine (0.7 - 1.2 mg/dL) 1.2 Estimated GFR (>60 ml/min) > 60 BUN/Creatinine Ratio (7 - 25 %) 12.5 Glucose (65 - 99 mg/dL) 94 Calcium (8.4 - 10.2 mg/dL) 9.7 Total Bilirubin (0.2 - 1.3 mg/dL) 0.3 AST (17 - 59 U/L) 20 ALT (21 - 72 U/L) 45 Alkaline Phosphatase (< 127 U/L) 51 Total Protein (6.3 - 8.2 g/dL) 7.3 Albumin (3.5 - 5.0 g/dL) 4.5 Globulin (1.9 - 4.2 gm/dL) 2.8 Albumin/Globulin Ratio (1.1 - 2.2 %) 1.6 Hematology CBC w Diff NO MAN DIFF REQ WBC (4.8 - 10.8 /CUMM) 6.3 RBC (4.70 - 6.10 /CUMM) 5.38 Hgb (14.0 - 18.0 G/DL) 14.8 Hct (42 - 52 %) 45.0 MCV (80.0 - 94.0 FL) 83.6 MCH (27.0 - 31.0 PG) 27.6 RDW (11.5 - 14.5 %) 13.4 Plt Count (130 - 400 /CUMM) 236 MPV (7.4 - 10.4 FL) 8.8 Gran % (42.2 - 75.2 %) 63.8 Lymphocytes % (20.5 - 51.1 %) 24.9 Monocytes % (1.7 - 9.3 %) 7.2 Eosinophils % (0 - 5 %) 3.9 Basophils % (0.0 - 2.0 %) 0.2 Absolute Granulocytes (1.4 - 6.5 /CUMM) 4.0 Absolute Lymphocytes (1.2 - 3.4 /CUMM) 1.6 Absolute Monocytes (0.10 - 0.60 /CUMM) 0.5 Absolute Eosinophils (0.0 - 0.7 /CUMM) 0.2 Absolute Basophils (0.0 - 0.2 /CUMM) 0 PUBS MCHC (33.0 - 37.0 G/DL) 33.0 Toxicology Urine Opiates Screen (>2000 NG/ML) < 100.00 Methadone Screen (>300 NG/ML) < 40 Barbiturate Screen (>200 NG/ML) < 60 Ur Phencyclidine Scrn (>25 NG/ML) < 6.00 Amphetamines Screen (>1000 NG/ML) < 100 U Benzodiazepines Scrn (>200 NG/ML) < 85 [place] (0.6 - 1.2 mmol/L) 0.4 L Urine Cocaine Screen (>300 NG/ML) < 50 Urine Cannabis Screen (>50 NG/ML) < 5.00 Serum Alcohol (<10 MG/DL) 41.0 A/P; 52-year-old male with past history significant for hypertension, bipolar disorder. His admission for suicidal ideation is admitted to [facility] with suicidal ideation. Agree with resuming patient's Toprol-XL. I reviewed the labs and they look okay. But monitor the blood pressure on his home dose. For the psych management will be per psychiatry.
[2017-03-19] VITALS (8 sets, daily range): BP systolic 130–142; BP diastolic 76–99
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
--- NOTE | 2017-03-19 11:57 | CP SOUTH PROGRESS NOTE PSYCH ---
Psych (Inpt) Progress Note Progress Note Nursing Staff, Group and Activity Therapists, Social Work Staff, and Psychiatrist discussed the patient's treatment and progress Summary: A 52-year-old White male who was brought to [facility]'s ED after his called 911. The patient reportedly told the police officers that he was having thoughts of suicide. The patient reported that he has been having thoughts of suicide pretty much since his discharge from [facility] about 3 weeks ago The patient reported that he felt that he left the hospital early and was still having thoughts of suicide (although he denied that at his discharge), the patient reported that his been struggling with thoughts of suicide almost daily for the past 3 weeks Mental Status Examination The patient reported that he feels bumped out/tired/depressed, he was lying in bed around 11:30 AM, he was up for breakfast, he was calm and cooperative Reduced psychomotor activity, Reduced speech Constricted affect, on and off suicidal ideation , denied violent thoughts or homicidal Ideation, denied Hallucinations, Denied feeling paranoid/Delusional Material, no difficulties with thought organization Poor insight Poor judgment Oriented to time place and person Alert No memory deficits Impression and Plan: 52-year-old white male who is known to staff at Inpatient Psychiatry from previous admissions. 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 Continue 15 minute checks Nursing assessments every shift Social work to obtain collateral and start discharge planning in Group therapy Milieu therapy Continue Abilify 10 mg daily
--- NOTE | 2017-03-19 16:05 | SOCIAL WORKER PROG NOTE PSYCH ---
Social Work Progress Note Progress Note 3:42pm This specification writer met with patient. He reported experiencing depression at a 7-8/. He identified feeling overwhelmed by his house being out of order as his primary trigger for his depression. Patient stated that he had been working with Xin Garciacortney for individual therapy and would like to return to working with her upon discharge. He stated that he is not interested in IOP due to plans to start a new second job. Regarding alcohol use, patient stated that he drank once prior to coming to the ER, however, denied regular use and stated that he does not need substance use treatment, including inpatient treatment for substance use. Patient refuses a family meeting. He reported that he continues to experience SI, "I fantasize about it"; he denied any plan. He stated that he feels safe on this unit and would inform staff immediately if feeling unsafe.
[2017-03-20] VITALS (8 sets, daily range): BP systolic 133–142; BP diastolic 78–88
--- NOTE | 2017-03-20 10:59 | CP SOUTH PROGRESS NOTE PSYCH ---
Psych (Inpt) Progress Note Progress Note Saturday: Nursing Staff, Group and Activity Therapists, Social Work Staff, and Psychiatrist discussed the patient's treatment and progress Mental Status Examination: The patient reported that he feels minor improvement in mood. He said he continues to feel tired and thinks it is one of the medications. He was calm and cooperative, reduced psychomotor activity, reduced speech, constricted affect, not very hopeful but denied thinking of ending his life, denied violent thoughts or homicidal Ideation, denied hallucinations, and denied feeling paranoid. There were no delusions, no difficulties with thought organization, poor insight, oriented to time place and person, alert, no memory deficits Impression and Plan: A 52-year-old White male who was brought to [facility]'s ED after his called 911 (reportedly had 6 beers and had a heated argument with his ). The patient reportedly told the police officers that he was having thoughts of suicide. The patient claimed that he has been having thoughts of suicide since his discharge from [facility] about 3 weeks ago/claimed that he was discharged from the hospital early. He is showing slow improvement and complaining of tiredness (he believes it is a medication side effect). 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 Continue 15 minute checks Nursing assessments every shift Social work to obtain collateral and start discharge planning in Group therapy Milieu therapy Continue Abilify 10 mg daily Psychiatrist to evaluate patient daily
--- NOTE | 2017-03-20 17:04 | SOCIAL WORKER PROG NOTE PSYCH ---
Social Work Progress Note Progress Note 4:10pm This filing writer met with patient. He reported feeling tired due to his medications and has noticed some improvement with mood. He continues to report feelings of hopelessness. Patient identified wanting a career in Intio[employer] as the trigger for his depression. He stated that he is not happy with working two or three jobs that he does not enjoy. 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 He identified music as a passion of his and that he enjoys playing music with his children. Patient was not willing to have a family meeting at this time. He signed an JOHN PAUL for his therapist, Arely Morales MA, [facility] ([phone]) and was agreeable to this filing writer contacting her. This filing writer left a vm for her at 4:36pm with a call back number.
[2017-03-21 07:53] VITALS: BP 121/95
[2017-03-21 07:56] VITALS: BP 121/95
--- NOTE | 2017-03-21 10:19 | CP SOUTH PROGRESS NOTE PSYCH ---
Psych (Inpt) Progress Note Progress Note Xi remains hopeless and depressed, seemed disinterested in the interview/ detached. He was calm and cooperative, reduced psychomotor activity, reduced speech, constricted affect, not very hopeful but denied thinking of ending his life, denied violent thoughts or homicidal Ideation, denied hallucinations, and denied feeling paranoid. There were no delusions, no difficulties with thought organization, poor insight, oriented to time place and person, alert, no memory deficits Assessment: A 52-year-old White male who was brought to [facility]'s ED after his called 911 (reportedly had 6 beers and had a heated argument with his ). The patient reportedly told the police officers that he was having thoughts of suicide. The patient claimed that he has been having thoughts of suicide since his discharge from [facility] about 3 weeks ago/claimed that he was discharged from the hospital early. He is showing slow improvement. 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 Continue 15 minute checks Nursing assessments every shift Social work to obtain collateral and start discharge planning in Group therapy Milieu therapy Psychiatrist to evaluate patient daily
--- NOTE | 2017-03-21 10:22 | IP INCIDENTAL NOTE PSYCH ---
Incidental Note Notation: Patient's Venlafaxine will be increased to 225 mg daily
--- NOTE | 2017-03-21 11:04 | SOCIAL WORKER PROG NOTE PSYCH ---
Social Work Progress Note Progress Note CHICHO SANDERSON [id number] 1965 CHICHO SANDERSON [id number] Pended Authorization # Client Authorization # Type of Request [id number] CONCURRENT Date of Admission/ Start of Services Requested From Submission Date 03/18/2017 03/21/2017 03/21/2017
[2017-03-21 12:25] VITALS: BP 146/102
[2017-03-21 15:43] VITALS: BP 142/94
--- NOTE | 2017-03-21 17:01 | SOCIAL WORKER PROG NOTE PSYCH ---
Social Work Progress Note Progress Note 10:50am This creative services writer met with patient. He described his mood as "liset hopeless." Patient was in his room and when asked by this creative services writer about isolation, he stated that he hadn't been, however, was tired from the medications. Patient stated that he had considered talking to his about pursuing his interest in computer networking and later decided against this. He stated that he would take a second job instead. Patient abruptly ended this conversation and stated that he was going to group.
[2017-03-21 19:51] VITALS: BP 145/97
[2017-03-22 08:05] VITALS: BP 137/90
[2017-03-22 12:02] VITALS: BP 136/93
--- NOTE | 2017-03-22 12:33 | CP SOUTH PROGRESS NOTE PSYCH ---
Psych (Inpt) Progress Note Progress Note Xi feels that his mood remains the same: i.e. hopeless, depressed, and still having thoughts of suicide (e.g. fantasizing about staving self to , but I would leave the house first), disinterested in the interview/detached, but calm and cooperative, reduced psychomotor activity, reduced speech, constricted affect but smiled once today, denied violent thoughts or homicidal Ideation, denied hallucinations, and denied feeling paranoid. There were no delusions, no difficulties with thought organization, poor insight, oriented to time place and person, alert, no memory deficits Assessment: A 52-year-old White male who was brought to [facility]'s ED after his called 911 (reportedly had 6 beers and had a heated argument with his ). The patient reportedly told the police officers that he was having thoughts of suicide. The patient claimed that he has been having thoughts of suicide since his discharge from [facility] about 3 weeks ago/claimed that he was discharged from the hospital early. 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 Continue 15 minute checks Nursing assessments every shift Social work to obtain collateral and start discharge planning in Group therapy Milieu therapy Psychiatrist to evaluate patient daily
[2017-03-22 16:11] VITALS: BP 143/92
--- NOTE | 2017-03-22 16:43 | SOCIAL WORKER PROG NOTE PSYCH ---
Social Work Progress Note Progress Note 3:35pm This quality analyst/technical writer met with patient. He described his mood as "good." He denied SI. Patient stated that he would like to schedule a family meeting with his / partner, which she also requested. Patient was encouraged to attend groups rather than isolating in his room. To this, he proceeded to go to the kitchen and observe a game that was being played. 4:38pm This quality analyst/technical writer spoke with Clarissa Carlson ([phone]) and scheduled a family meeting for 03/25/17, at 12pm.
[2017-03-22 19:47] VITALS: BP 146/98
[2017-03-23 08:08] VITALS: BP 137/98
--- NOTE | 2017-03-23 10:44 | CP SOUTH PROGRESS NOTE PSYCH ---
Psych (Inpt) Progress Note Progress Note Include the following elements, when applicable: Involvement in the active treatment of the patient with behavioral observations of the patient and the patient's response to the treatment. Review of the ongoing treatment process in the context of the treatment plan. Indication of how multi-disciplinary staff members are carrying out the treatment plan. Plans for future interventions and recommendations for revision of the treatment plan. Liaison with other physicians/providers. Progress Note: Stated that he was doing relatively well, denied any recent suicidal thoughts, was going to speak with his children on phone this morning. Stated that he had several period of sobriety around age 47, also his suicidal thoughts began around 10 years ago. Stated that he hoped he could remain sober; was planning to start AA and hopeful that naltrexone would help. Got a 2nd job so he can provide financially for his family and can move into a larger house. Future focused. Sleeping well. No issues with med changes. MSE: fair to poor grooming, quiet, mildly withdrawn, fair eye contact; right eye clouding. Distant and disengaged but cooperative. No movement disorder evident. Speech is soft to regular volume, regular rate. Mood is down, affect is congruent and reactive somewhat. Thought process is linear. Does not appear to be disorganized or with delusional thought content. Thought content is free of suicidal thoughts, thoughts to harm others or delusional content. No hallucinations. Insight fair, judgment fair. Cognition grossly intact. A: 52 year old man with a history of alcohol use, depressive disorder, recurrent suicidal thoughts, admitted with suicidal thoughts. Continues to have depressed, constricted affect and slow reactivity. Plan: discussed abstinence, AA, encouraged following up w/ meetings. No med changes, tolerating well. continue plan of care. Encourage socialization and behavioral activation.
[2017-03-23 12:28] VITALS: BP 136/89
[2017-03-23 16:11] VITALS: BP 136/90
[2017-03-23 20:07] VITALS: BP 132/92
[2017-03-24 07:59] VITALS: BP 129/93
--- NOTE | 2017-03-24 10:50 | CP SOUTH PROGRESS NOTE PSYCH ---
Psych (Inpt) Progress Note Progress Note Include the following elements, when applicable: Involvement in the active treatment of the patient with behavioral observations of the patient and the patient's response to the treatment. Review of the ongoing treatment process in the context of the treatment plan. Indication of how multi-disciplinary staff members are carrying out the treatment plan. Plans for future interventions and recommendations for revision of the treatment plan. Liaison with other physicians/providers. Progress Note: Stated that he is thinking about going to , would consider getting a sponsor. Rates depression as 5/10, no anxiety. Feels a few months ago his depression was a lot lower, at a scale of 1-2 only, that his life was sunnier and more hopeful. Unsure what happened, thinks it may be due to needing to get a 2nd job. We discussed his sleep hygiene, he works 5-10pm and stays up w/ his and 4 dogs until around 3am, then gets his 4 children up for school in the morning. Discussed shifting his sleep and his wifes sleep a bit closer to a normal schedule, to benefit his mood, his weight, energy etc. MSE: fair to poor grooming, quiet. Fair eye contact. Nonchalant but receptive to our discussion. No tic or tremor noted. His speech is normal. Mood is neutral to down, his affect is constricted and congruent to mood. Thinking is logical. No evidence of delusional thought content, no thoughts to harm self/others, no internal preoccupation. Insight fair, judgment fair. Cognition grossly intact. A: 52 year old man with a history of alcohol use, depressive disorder, recurrent suicidal thoughts, admitted with suicidal thoughts. Continues to have depressed, constricted affect and slow reactivity but may be more of a nonchalance rather than active depression. Focused on his future, seeing his family and abstinence from alcohol. Plan: discussed seeking a sponsor through , encouraged more daylight hours being awake. Continue current plan of care. Stabilizing.
[2017-03-24 12:17] VITALS: BP 132/97
[2017-03-24 16:05] VITALS: BP 133/79
[2017-03-24 19:46] VITALS: BP 126/84
[2017-03-25 07:53] VITALS: BP 138/91
[2017-03-25 11:59] VITALS: BP 125/95
--- NOTE | 2017-03-25 12:55 | CP SOUTH PROGRESS NOTE PSYCH ---
Psych (Inpt) Progress Note Progress Note I reviewed the notes of Dr. Xin Bolden MD (covering psychiatrist for the weekend of Mar 23 & 2017) The Nursing Staff, Group therapists, social work staff, and psychiatrist discussed the patients progress, and reviewed the patients treatment/care plan in the team meeting The patient believes that his depression is the same: i.e. about 5/10. He reported that he slept well with current medication doses He shaved and is wearing his reading glasses Although he reported his mood as not being any better, he looked brighter in affect and smiled a couple of times Good eye contact, no tics or tremors noted, speech is normal, coherent/logical, no evidence of delusional thoughts When asked about thoughts of suicide his response is not really. Denied thoughts to harm others, no internal preoccupation, and fair insight fair , Cognition grossly intact. A: 52 year old man with a history of alcohol use, depressive disorder, recurrent suicidal thoughts, admitted with suicidal thoughts. Continues to have depressed mood and slow reactivity but may be more of a nonchalance rather than active depression. Plan: Continue Abilify 10 mg daily Continue [place] 300 mg twice daily (wont focus on levels, as my plan is to eliminate lithium-down the road-- as benefits (lack of, that is) do not justify risks Continue Naltrexone 50 mg daily Continue Venlafaxine 225 mg daily Continue inpatient psychiatric care. Continue 15 minute checks Nursing: continue assessments every shift Social work: to obtain collateral and start discharge planning in Group therapy Milieu therapy Psychiatrist: continue to evaluate patient daily
[2017-03-25 16:09] VITALS: BP 143/92
--- NOTE | 2017-03-25 17:35 | SOCIAL WORKER PROG NOTE PSYCH ---
Social Work Progress Note Progress Note 12:21pm This copy writer attempted to reach patient's partner, Clarissa, regarding today's 12pm family meeting due to not arriving at that time. A vm was not left on the home number as it did not appear to be Clarissa's number. Patient provided another number, cell: [phone], for Clarissa, but the vm was full. Patient was informed of unsuccessful attempt. 4:00pm This copy writer met with patient. He stated that Clarissa was sick today and therefore unable to attend the 12pm family meeting. He reported that his mood is "good" and feels that the improvement is hearing that his dog had puppies. Patient continues to report decreased motivation. He denied SI/HI/AH/VH. Patient was agreeable to scheduling another family meeting. 5:34pm This copy writer attempted to reach Clarissa, , however, she was not available. This copy writer will attempt to reach her another time.
--- NOTE | 2017-03-25 18:31 | SOCIAL WORKER PROG NOTE PSYCH ---
Social Work Progress Note Progress Note BHP REVIEW DONE, CHECK WEB.
[2017-03-25 19:47] VITALS: BP 141/91
[2017-03-26 07:57] VITALS: BP 137/97
--- NOTE | 2017-03-26 11:48 | CP SOUTH PROGRESS NOTE PSYCH ---
Psych (Inpt) Progress Note Progress Note The Nursing Staff, Group therapists, social work staff, and psychiatrist discussed the patients progress, and reviewed the patients care plan in the team meeting The patient reported feeling better, he thinks he is getting close to discharge, I asked him to set up a discharge date, he picked tomorrow, he reported that he slept well with current medications, he looked brighter in affect, good eye contact, no tics or tremors noted, speech is normal, coherent/logical, no evidence of delusional thoughts, denied thinking of suicide, denied thoughts to harm others, no internal preoccupation, and cognition grossly intact. Assessment: Xi is a 52 year old man with a history of alcohol use, depressive disorder, recurrent suicidal thoughts, admitted with suicidal thoughts. Risk factors: Recent thoughts of suicide, history of alcohol use disorder Plan: Continue Abilify 10 mg daily Continue [place] 300 mg twice daily (wont focus on levels, as my plan is to eliminate lithium-down the road-- as benefits (lack of, that is) do not justify risks Continue Naltrexone 50 mg daily Continue Venlafaxine 225 mg daily Continue inpatient psychiatric care: Continue 15 minute checks; Nursing: continue assessments every shift; Social work: to obtain collateral and start discharge planning; Group therapy; Milieu therapy; Psychiatrist: continue to evaluate patient daily
[2017-03-26 12:21] VITALS: BP 127/90
[2017-03-26 15:55] VITALS: BP 140/97
--- NOTE | 2017-03-26 17:42 | SOCIAL WORKER PROG NOTE PSYCH ---
Social Work Progress Note Progress Note 1:30pm This life insurance underwriter met with patient. He expressed interest in discharging tomorrow and would like to return to individual therapy with Stephon Morales and medication management with Aranza Crocker APRN ( [facility]). He maintains that he is not interested in IOP. Patient stated, "I want to participate in life." He denied SI/HI/AH/VH. He was agreeable to this life insurance underwriter scheduling outpatient appointments with Stephon Morales and [facility]. 2:42pm A vm was left for patient's individual therapist, Arely Morales ([phone]) , with a call back number requesting a return call.
[2017-03-26 20:08] VITALS: BP 136/97
[2017-03-27 07:59] VITALS: BP 126/89
[2017-03-27] MEDS ORDERED: TRAZODONE HCL100 M1 PO (08:25)
[2017-03-27] MEDS ORDERED: VENLAFAXINE HCL75 M1 PO (08:25)
[2017-03-27] MEDS ORDERED: NALTREXONE HCL50 M1 PO (08:25)
[2017-03-27] MEDS ORDERED: LITHIUM CARBON300 M4 PO (08:25)
[2017-03-27] MEDS ORDERED: ABILIFY10 M1 PO (08:25)
[2017-03-27] MEDS ORDERED: VENLAFAXINE HC150 MG PO (08:25)
--- NOTE | 2017-03-27 11:16 | DISCHARGE SUMMARY REPORT-PSYCH ---
Visit Information Visit Dates/Diagnosis' Admission Date: 03/18/17 Discharge Date: 03/27/17 Reason for Admission: Pt. is a 52 year old male BIBA from home after his called 911. Pt. reported to this Molding Manager that he had drank six beers to day and got into an argument with his . Pt. said that he gave his "the finger" and put his hand up near her face, however pt. said that he did not put his hands on his , nor did he threaten her with bodily harm. Pt. said that when the police came to his house, her told them that he was having suicidal thoughts and that the police then called the ambulance and brought him to the ED. Pt. reports that he is depressed with decreased energy, motivation and interest. He denied any sleep or appetite problems. Pt. reports that he has been a having suicidal thoughts every day since being discharged from [facility] on 02/22/17. 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 De pressive Disorder (with f eatures of Psy Discharge Secondary Diag: Alcohol Use Disorder, mod Hospital Course Significant Lab Findings: Lab BUN 15 mg/dL 03/17/17 1706 BUN/Creatinine Ratio 12.5 % 03/17/17 1706 Cholesterol 251 MG/DL H 02/19/17 0650 Cholesterol/HDL Ratio 5 % H 02/19/17 0650 Creatinine 1.2 mg/dL 03/17/17 1706 Estimated GFR > 60 ml/min 03/17/17 1706 HDL Cholesterol 48 mg/dL 02/19/17 0650 LDL Cholesterol, Calc 156 mg/dL H 02/19/17 0650 TSH 1.460 uIU/mL 02/07/17 1344 TSH &T3 &Free T4 Intrp 2.790 uIU/mL 01/23/17 0645 Thyroxine (T4) 7.6 ug/dL 09/12/13 0735 Triglycerides 239 mg/dL H 02/19/17 0650 Benbow 0.4 mmol/L L 03/17/17 1706 Serum Alcohol 41.0 MG/DL 03/17/17 1706 Course Complications: The patient did not have any complications while he was on the inpatient psychiatric unit Consultations: The patient had a history and physical examination while he was on the inpatient psychiatric unit BYDr. Pauline Matias MD "A/P; 52-year-old male with past history significant for hypertension, bipolar disorder. His admission for suicidal ideation is admitted to [facility] with suicidal ideation. Agree with resuming patient's Toprol-XL. I reviewed the labs and they look okay. But monitor the blood pressure on his home dose. For the psych management will be per psychiatry." Allergies: Coded Allergies: No Known Allergies (12/26/15) Hospital Course/TX Response: The patient is a 52-year-old white male who was brought in to the emergency room by ambulance from home after his called 911. The patient arrived in the emergency room on March 18 and he was admitted to Inpatient Psychiatry The patient reportedly had 6 beers the day of his presentation to the emergency room followed by an argument with his . It was also allegedly that he gave his the finger and put his hand near her face. The patient denied that he would hurt his hands on his . And he denied threatening her with bodily harm. When the police came to the house he reported that he was having thoughts of suicide and the police called in December and ambulance to bring him to the emergency department. The patient was continued on the same medications that he was refusing receiving last time he was at Inpatient Psychiatry The patient was placed on CIWA protocol with tapering doses of Ativan for any possible withdrawals. The next day on March 19 his Ativan dose was reduced. The patient did not show any major withdrawals during his stay at Inpatient Psychiatry. On the , the patient was complaining about tiredness and sedation and blaming the medications for that as opposed to his depression. He discussed his medications and his past medication trials with him. We agreed on reducing the lithium to 300 mg twice daily with a long-term plan and possibly off coming off this medication as it seems to have not made a significant difference in preventing hospitalizations or suicidal thoughts. On the Seroquel protocol was discontinued as there was no evidence of withdrawals. And the patients venlafaxine was increased to total dose of 225 mg daily The patient was continued on the same treatment on the and the weekend of the and the 2017 in (February) On Saturday the the patient was starting to show a shift in his mental state with more hopefulness and brighter affect. There were no changes in medication made on the On the the patient told me that he is ready for discharge and I asked him to sit up his own discharge date, he said tomorrow (03/27/2017: Xi believes he is ready for discharge. He says that he is being honest about denying thoughts of suicide this time around (despite being dishonest last time he was here) reported feeling better, reported that he slept poorly last night (because there was a 1:1 sitter for his roommate) clean shaved, brighter in affect, good eye contact, speech is normal, coherent/ logical, no evidence of delusional thoughts, denied thinking of suicide, denied thoughts to harm others, no internal preoccupation, and intact cognition. Poor reliability Assessment: Xi is a 52-year-old man with a history of recurrent suicidal thoughts, admitted with suicidal thoughts. Risk factors: Recent thoughts of suicide, history of alcohol use disorder History of a mood disorder/depression vs. Bipolar II Protective Factors: Denied thinking of suicide for the past 2-3 days Denied hopelessness and looked brighter in affective expressions Plan: Discharge Home Discharge Medications: Continue Abilify 10 mg daily Continue [place] 300 mg twice daily (wont focus on levels, as my plan is to eliminate lithium-down the road-- as benefits (lack of, that is) do not justify risks Continue Naltrexone 50 mg daily Continue Venlafaxine 225 mg daily Discharge HBIPS - Tobacco Use Treatment Offered Post DC Medications Offered: Not Applicable Post DC Tobacco Treatment Plan: Not Applicable - EtOH/Drug Use D/O Treatment Offered Post DC Medications Offered: Script Given-See Med List Post DC EtOH/SubAbuse TX Plan: Refused Post DC Tx Pgm Metabolic Screening - Screen if on a Neuroleptic Medication - Metabolic screening should include: - Blood Pressure, BMI, Glucose or Hgb A1c, & a - Lipid profile from within the past 365 days. Metabolic Screening Patient on a neuroleptic(s) . Enter below results for Hemoglobin A1C, and lipid panel if obtained during the last 365 days. BMI: 25.500 Blood Pressure: 126/89 Laboratory Results From [facility] (If applicable): Lab Cholesterol 251 MG/DL H 02/19/17 0650 Cholesterol/HDL Ratio 5 % H 02/19/17 0650 HDL Cholesterol 48 mg/dL 02/19/17 0650 Hemoglobin A1c 5.5 % 02/19/17 0650 LDL Cholesterol, Calc 156 mg/dL H 02/19/17 0650 Triglycerides 239 mg/dL H 02/19/17 0650 Discharge Instructions General Discharge Information Multiple Neuroleptics: ([X]) Not Applicable Discharge Diet Regular Discharge Activity Normal DC Disposition: Home Referrals Ordered Referrals Provider Referral 04/04/17 For Groups: [[facility]] [facility] [address], [place] [phone] Intake Appointment: , 04/04/17, at 8:30am with Anastacia Provider Referral 04/23/17 For Groups: [[facility]] [facility] [address] [facility], [place] [phone] Appointment: 04/23/17, at 9:30am with Aranza Crocker APRN Prescriptions Stop taking the following medications: Trazodone HCl (Trazodone HCl) 50 MG TABLET ORAL AT BEDTIME as needed for insomnia Qty = 14 Venlafaxine HCl (Effexor XR) 75 MG CAP.ER.24H ORAL DAILY @8 AM Qty = 14 Benbow Carbonate (Benbow Carbonate) 300 MG CAPSULE ORAL AT BEDTIME Qty = 14 Benbow Carbonate (Benbow Carbonate) 300 MG CAPSULE ORAL DAILY @8 AM Qty = 14 Gabapentin (Gabapentin) 300 MG CAPSULE ORAL AT BEDTIME Qty = 30 Bupropion HCl (Wellbutrin XL) 150 MG TAB.ER.24H ORAL DAILY @8 AM Qty = 14 Venlafaxine HCl (Effexor XR) 75 MG CAP.ER.24H ORAL DAILY Qty = 14 Aripiprazole (Abilify) 10 MG TABLET ORAL 2000 Qty = 14 Naltrexone HCl (Naltrexone HCl) 50 MG TABLET ORAL DAILY Qty = 14 Continue taking these medications: Metoprolol Succ XL (Toprol XL) 25 MG TAB 25 Milligram ORAL 5 PM Qty = 30 Comments: Last Taken:02/21/17 Time:1709 Start taking the following new medications: Naltrexone HCl (Naltrexone HCl) 50 MG TABLET 50 Milligram ORAL DAILY Qty = 15 No Refills Comments: Last Taken:03/27/17 Time:0809 Trazodone HCl (Trazodone HCl) 100 MG TABLET 100 Milligram ORAL AT BEDTIME Qty = 15 No Refills Comments: Last Taken:03/26/17 Time:2200 Aripiprazole (Abilify) 10 MG TABLET 10 Milligram ORAL DAILY Qty = 15 No Refills Comments: Last Taken:03/27/17 Time:808 Benbow Carbonate (Benbow Carbonate) 300 MG CAPSULE 1 Capsule ORAL TWICE DAILY Qty = 30 No Refills Comments: Last Taken:03/26/17 Time:2200 Venlafaxine HCl (Venlafaxine HCl ER) 75 MG CAP.ER.24H 1 Capsule ORAL DAILY Qty = 15 No Refills Comments: Last Taken:03/27/17 Time:808 Venlafaxine HCl (Venlafaxine HCl ER) 150 MG CAP.ER.24H 1 Capsule ORAL DAILY Qty = 15 No Refills Copies To: BOB Marie
[2017-03-27 12:12] VITALS: BP 132/90
--- NOTE | 2017-03-27 17:01 | SOCIAL WORKER PROG NOTE PSYCH ---
Social Work Progress Note Progress Note 10:45am This tech writer met with patient. He reported overall improvment with symptoms, however, did not sleep well last night due to his roommate being loud during the night. Patient stated that he would like to discharge today, which had been discussed in the team meeting this morning. Patient stated that he does not want to attend IOP and would like to return to individual therapy with Arely Morales and medicaiton management through [facility]PS. Patient denied SI/HI/AH/VH. He identified a safety plan in which he would inform "Arely Romo or go tot [facility]" if feeling unsafe or have other concerns. He was informed that he would be provided with crisis numbers and warm lines prior to discharging. He was agreeable to utilizing these resources. This tech writer left a vm for Arely Morales at 10:51am and spoke with her at 1: 07pm. Arely was agreeable to the patient not attending IOP, stating, "he could run the group." She stated that she would meet with him once to twice weekly as needed. She was also informed of the plan for the patient to continue with [facility] for medication management. Arely stated that she felt that the patient had benefitted from Antabuse in the past and requested that this is relayed to the prescriber. A message was sent to Dr. Melara and Aranza Crocker APRN regarding this. An appointment was scheduled with Arely for 04/01/17 at 10am. This tech writer reviewed the following appointments with the patient, who accepted them: - [facility]PS intake: , 04/04/17 at 8:30am - [facility] medication appointment: 04/23/17, at 9:30am with Aranza Crocker APRN - Arely Morales MA, [facility], CAC: [phone], 04/01/17 at 10am Discharge plans were reviewed with patient's , Clarissa, when she presented to provide transportation for the patient from the hospital to home. She was agreeable to these discharge plans. AA was also discussed and patient accepted a meeting book. He also requested two copies of return to work letters from Dr. Melara. He was provided with these copies, they were also filed in his chart. Faxed Referral(s) 1 Referred To: [facility]PS Transition of Care Documents sent: Health Summary Faxed to: Kenzie/Aranza Crocker APRN Fax #: [phone] Faxed by: Nadia Lin LCSW Date faxed: 03/27/17 Time Faxed: [phone] Faxed Referral(s) 2 Referred To: Arely Morales MA, [facility] Transition of Care Documents sent: Health Summary Faxed to: Arely Morales Fax #: [phone] Faxed by: Nadia Lin LCSW Date faxed: 03/27/17 Time Faxed: [phone]
== END 2017-03-27 15:20 | DRG 753 ==
LOC: ERH 16:43 → ERHI 03-18 10:41 → CP SOUTH 03-18 10:41 → ENTRNSPT 03-18 10:54 → ENRESERV 03-18 11:00 → CMPTRNSPT 03-18 11:19 → CP SOUTH 03-18 11:22 → CANRESERV 03-18 23:59 → ENRESERV 03-18 23:59 → ENPENDDIS 03-27 14:00 → CP SOUTH 03-27 15:20
PROVIDERS: Emergency Medicine
DX: F32.89 Other specified depressive episodes (principal); F10.20 Alcohol dependence, uncomplicated
CPT/HCPCS: 80307; G0463; G0480; J0401

== ENCOUNTER 2017-11-13 23:36 | Emergency (ER) | payer OTHER ==
[~2017-11-13] VITALS: Ht 182.9 cm; Wt 90.7 kg
[~2017-11-13 23:36] MED LIST changes: +CYCLOBENZAPRINE10 M1 PO; +IBUPROFEN800 M1 PO; +TRAZODONE HCL100 M1 PO; +VENLAFAXINE HC150 MG PO; +VENLAFAXINE HCL75 M1 PO
--- NOTE | 2017-11-14 02:34 | ULTRASOUND REPORT ---
EXAMINATION: US SCROTUM CLINICAL INFORMATION: Testicular pain COMPARISON: None TECHNIQUE: A sonogram of the scrotum was performed assessing lanier-scale appearance and color Doppler flow. Spectral analysis and Doppler interrogation was performed. FINDINGS: RIGHT: Right testicle measures 4.2 x 2.5 x 2.9 cm, volume 22 mL. Parenchymal echotexture is normal. There is a nonshadowing echogenic focus in the right testicle measuring 0.3 cm. Normal symmetric intratesticular flow is visualized. Right epididymal head is normal in size. Moderate right hydrocele. Right varicocele noted. LEFT: Left testicle measures 4.5 x 3.2 x 2.9 cm, volume 30 mL. Parenchymal echotexture is normal. No focal testicular parenchymal lesions are visualized. Normal symmetric intratesticular flow is visualized. Appendix testis is noted. Left epididymal head is normal in size. Moderate left hydrocele. Left varicocele noted. IMPRESSION: 1. No evidence of testicular torsion. 2. Echogenic focus in the right testicle measuring 0.3 cm, without shadowing to indicate calcification. Malignancy cannot be excluded. 3. Bilateral varicocele, a finding which can be due to compression of testicular venous drainage by retroperitoneal tumor/mass. This would be best further assessed with contrast-enhanced CT of the abdomen/pelvis. 4. Bilateral hydrocele.
[2017-11-14 02:36] LABS: ABSOLUTE BASOPHIL COUNT 0 /CUMM (0.0-0.2); ABSOLUTE EOSINOPHIL COUNT 0.5 /CUMM (0.0-0.7); ABSOLUTE GRANULOCYTE CT 7.8 /CUMM (1.4-6.5); ABSOLUTE LYMPH COUNT 2.5 /CUMM (1.2-3.4); ABSOLUTE MONOCYTE COUNT 0.9 /CUMM (0.10-0.60); BASOPHIL % 0.3 % (0.0-2.0); EOSINOPHIL % 4.1 % (0-5); GRANULOCYTE % 66.6 % (42.2-75.2); HEMATOCRIT 41.6 % (42-52); MEAN CORPUSCULAR HGB 28.7 PG (27.0-31.0); MEAN CORPUSCULAR HGB CONC 34.6 G/DL (33.0-37.0); MEAN CORPUSCULAR VOLUME 82.9 FL (80.0-94.0); MEAN PLATELET VOLUME 8.6 FL (7.4-10.4); PLATELET COUNT 251 /CUMM (130-400); RED BLOOD CELL CT 5.02 /CUMM (4.70-6.10); WHITE BLOOD CELL COUNT 11.6 /CUMM (4.8-10.8)
--- NOTE | 2017-11-14 02:44 | ED GI/GU/ABDOMINAL COMPLAINT ---
History of Present Illness General Chief Complaint: Male Genitourinary Problems Stated Complaint: "SWOLLEN LEFT TESTICLE" PER PATIENT Source: patient, old records Exam Limitations: no limitations Vital Signs & Intake/Output Vital Signs & Intake/Output Vital Signs Date Time Temp Pulse Resp B/P B/P Pulse O2 O2 Flow FiO2 Mean Ox Delivery Rate 11/14 0500 95 20 159/103 97 Room Air 11/14 0019 98.2 96 17 154/86 98 Room Air Room Air Allergies Coded Allergies: No Known Allergies (07/30/17) Reconcile Medications Aripiprazole (Abilify) 10 MG TABLET 10 MG PO DAILY mood Cyclobenzaprine HCl 10 MG TABLET 1 TAB PO TID PRN PAIN Ibuprofen 800 MG TABLET 1 TAB PO TID PRN PAIN [place] Carbonate 300 MG CAPSULE 1 CAP PO BID mood Metoprolol Succ XL (Toprol XL) 25 MG TAB 25 MG PO 1700 blood pressure Naltrexone HCl 50 MG TABLET 50 MG PO DAILY cravings Trazodone HCl 100 MG TABLET 100 MG PO AT BEDTIME insomnia Venlafaxine HCl (Venlafaxine HCl ER) 75 MG CAP.ER.24H 1 CAP PO DAILY with 150 mg = 225 mg Venlafaxine HCl (Venlafaxine HCl ER) 150 MG CAP.ER.24H 1 CAP PO DAILY with 75 mg= 225 mg Triage Note: PT TO TRIAGE FOR LEFT TEST SWELLING FOR 2-3 WEEKS. PT STATES IT IS SLIGHTLY TENDER. DENIES FEVERS, DENIES ANY PENILE DRAINAGE. Triage Nurses Notes Reviewed? yes Onset: 2-3 weeks Duration: week(s):, constant, continues in ED, getting worse Timing: recent history Quality/Severity: aching, fullness, moderate Location: scrotal Radiation: no radiation Activities at Onset: rest Prior Abdominal Problems: none Past Sexual History: Unobtainable at this time Modifying Factors: Worsens With: movement, palpation. Associated Symptoms: swelling HPI: To 3 weeks prior to admission patient complains of increasing left scrotal swelling and testicular pain especially when ejaculating. He denies fever chills nausea vomiting diarrhea abdominal pain chest pain shortness breath headache dysuria rash bleeding penile discharge unprotected sex. Past History Travel History Traveled to [place] past 21 day No Medical History Any Pertinent Medical History? 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 No Review of Systems Review of Systems Constitutional: Reports: no symptoms. EENTM: Reports: no symptoms. Respiratory: Reports: no symptoms. Cardiovascular: Reports: no symptoms. GI: Reports: no symptoms. Genitourinary: Reports: see HPI, pain. Musculoskeletal: Reports: no symptoms. Skin: Reports: no symptoms. Neurological/Psychological: Reports: no symptoms. Hematologic/Endocrine: Reports: no symptoms. Immunologic/Allergic: Reports: no symptoms. All Other Systems: Reviewed and Negative Physical Exam Physical Exam General Appearance: well developed/nourished, alert, awake, anxious, mild distress Head: atraumatic, normal appearance Eyes: Bilateral: normal appearance, PERRL, EOMI, normal inspection. Ears, Nose, Throat, Mouth: hearing grossly normal, moist mucous membrane Neck: normal inspection, supple, full range of motion, normal alignment Respiratory: normal breath sounds, chest non-tender, no respiratory distress, quiet respiration, lungs clear Cardiovascular: regular rate/rhythm, normal peripheral pulses, norml femoral pulses equa Peripheral Pulses: 4+ carotid (R), 4+ carotid (L) Gastrointestinal: normal bowel sounds, soft, non-tender, no organomegaly Male Genitals: normal cremaster reflex, scrotum tenderness (L), testicular tenderness (L) Back: normal inspection, normal range of motion Extremities: normal range of motion, no ligament instability Neurologic/Psych: no motor/sensory deficits, awake, alert, oriented x 3, normal gait, normal mood/affect, media planner II-XII nml as tested Skin: intact, normal color, warm/dry Core Measures ACS in differential dx? No Sepsis Present: No Sepsis Focused Exam Completed? No Progress Differential Diagnosis: epididymitis, hernia, testicular torsion, UTI/pyelo Plan of Care: Orders Procedure Date/time Status URINALYSIS 11/14 10 Complete COMPREHENSIVE METABOLIC PANEL 11/14 10 Complete CBC WITHOUT DIFFERENTIAL 09/20 0011 Complete Laboratory Tests 11/14/17 0350: Urine Color YEL, Urine Clarity CLEAR, Urine pH 7.0, Ur Specific [place] 1.015, Urine Protein NEG, Urine Ketones NEG, Urine Nitrite NEG, Urine Bilirubin NEG, Urine Urobilinogen 0.2, Ur Leukocyte Esterase NEG, Ur Microscopic EXAM NOT REQUIRED, Urine Hemoglobin NEG, Urine Glucose NEG 11/14/17 0230: Anion Gap 10, Estimated GFR > 60, BUN/Creatinine Ratio 11.7, Glucose 94, Calcium 9.8, Total Bilirubin 0.4, AST 33, ALT 54, Alkaline Phosphatase 80, Total Protein 7.3, Albumin 4.7, Globulin 2.6, Albumin/Globulin Ratio 1.8, CBC w Diff NO MAN DIFF REQ, RBC 5.02, MCV 82.9, MCH 28.7, MCHC 34.6, RDW 13.0, MPV 8.6, Gran % 66.6, Lymphocytes % 21.3, Monocytes % 7.7, Eosinophils % 4.1, Basophils % 0.3, Absolute Granulocytes 7.8 H, Absolute Lymphocytes 2.5, Absolute Monocytes 0.9 H, Absolute Eosinophils 0.5, Absolute Basophils 0 Diagnostic Imaging: Viewed by Me: Ultrasound. Discussed w/RAD: Ultrasound. Radiology Impression: 1. No evidence of testicular torsion. 2. Echogenic focus in the right testicle measuring 0.3 cm, without shadowing to indicate calcification. Malignancy cannot be excluded. 3. Bilateral varicocele, a finding which can be due to compression of testicular venous drainage by retroperitoneal tumor/mass. This would be best further assessed with contrast- enhanced CT of the abdomen/pelvis. 4. Bilateral hydrocele., No evidence of retroperitoneal adenopathy or mass. No acute findings identified in the abdomen/ pelvis. Initial ED EKG: none Departure Departure Time of Disposition: 541 Disposition: HOME OR SELF CARE Condition: Stable Clinical Impression Primary Impression: Bilateral varicoceles Secondary Impressions: Bilateral hydrocele Referrals: Rosa Andersen DO (PCP/Family) Tee Thomas MD Call for urology follow up Departure Forms: Customer Survey General Discharge Information Disposition: HOME OR SELF CARE Condition: Stable Referrals: Rosa Andersen DO (PCP/Family) Departure Forms: Customer Survey General Discharge Information
[2017-11-14 05:00] VITALS: BP 159/103
--- NOTE | 2017-11-14 05:35 | CT SCAN REPORT ---
EXAMINATION: CT ABDOMEN AND PELVIS WITH CONTRAST CLINICAL INFORMATION: Bilateral varicocele on ultrasound, question retroperitoneal mass COMPARISON: None TECHNIQUE: Multidetector volumetric imaging was performed of the abdomen and pelvis following IV administration of 95 mL of Optiray 320 intravenous contrast. Sagittal and coronal reformatted images were obtained on the technologist's workstation. DLP: 492.33 mGy-cm FINDINGS: LUNG BASES: The visualized lung bases are unremarkable. LIVER, GALLBLADDER, AND BILIARY TREE: The liver is normal in size, shape, and attenuation. No focal hepatic lesion or biliary ductal dilatation is present. The gallbladder is unremarkable with no evidence of radiopaque gallstones, gallbladder wall thickening, or obvious pericholecystic inflammatory changes. PANCREAS: Unremarkable. SPLEEN: Unremarkable. ADRENAL GLANDS: Unremarkable. KIDNEYS AND URETERS: The kidneys are normal in size, shape, and attenuation. There are a few tiny bilateral renal calculi without hydronephrosis. No ureteral calculi seen. There is a subcentimeter hypoattenuating lesion in the lower left kidney which may reflect a cyst or fat within an angiomyolipoma. No perinephric stranding. BLADDER: Unremarkable. GASTROINTESTINAL TRACT: There is mild colonic diverticulosis. Assessment for wall thickening in some segments of the colon is limited due to luminal collapse, though no significant pericolonic stranding is seen to strongly suggest a colitis. No evidence of bowel obstruction. The appendix is unremarkable. No free fluid or free air is seen. ABDOMINAL WALL: No significant hernia is appreciated. LYMPH NODES: Normal. VASCULAR: Unremarkable. PELVIC VISCERA: Unremarkable. OSSEOUS STRUCTURES: Unremarkable. IMPRESSION: No evidence of retroperitoneal adenopathy or mass. No acute findings identified in the abdomen/pelvis.
== END 2017-11-14 06:39 ==
LOC: ERH 23:36
PROVIDERS: Physician Assistant
DX: I86.1 Scrotal varices (principal); N43.3 Hydrocele, unspecified; I10 Essential (primary) hypertension; E78.5 Hyperlipidemia, unspecified; F31.9 Bipolar disorder, unspecified; F10.10 Alcohol abuse, uncomplicated; Z87.891 Personal history of nicotine dependence
CPT/HCPCS: 74177; 81003; J1200; J2930